=== PATIENT | male | born 1955 | race Caucasian/White ===

== ENCOUNTER 2017-01-22 06:19 | Inpatient (IN) | payer MEDICARE, MEDICAID ==
[2017-01-22] VITALS (15 sets, daily range): BP systolic 147–204; BP diastolic 80–98
[~2017-01-22] VITALS: Ht 172.7 cm; Wt 100.4 kg
[~2017-01-22 06:19] MED LIST: ADVAIR 500/501 E1 INH; ALDACTONE25 MG PO; ATORVASTATIN CA20 M1 PO; CHANTIX START M1 TAB PO; COREG12.5 M1 PO; COREG25 MG PO; CYMBALTA30 MG PO; Clopidogrel75 MG PO; K-TAB20 MEQ PO; LANTUS100 U/ML SC; LASIX20 MG PO; LIPITOR20 MG PO; LOW DOSE ASPIRI81 MG PO; PLAVIX75 M1 PO; PROAIR HFA8.5 GM INH; VITAMIN D1000 IU PO; ZESTRIL20 MG PO
[2017-01-22 06:59] LABS: BASO # 0.1 10*3/uL (0.0-0.1); BASO % 1.3 % (0.0-1.0); EOS # 0.4 10*3/uL (0.0-0.4); EOS % 4.9 % (1.0-4.0); HEMATOCRIT 42.3 % (42.0-52.0); HEMOGLOBIN 14.1 g/dl (14.0-18.0); LYMPH # 1.2 10*3/uL (1.3-4.4); LYMPH % 14.2 % (27.0-41.0); MEAN CORPUSCULAR HGB CONC 33.3 g/dl (33.0-37.0); MEAN PLATELET VOLUME 9.9 fl (9.6-12.3); MONO # 0.4 10*3/uL (0.1-1.0); NEUT # 6.5 10*3/uL (2.3-7.9); NEUT % 74.1 % (47.0-73.0); PLATELET COUNT AUTOMATED 187 10*3/uL (130-400); RED BLOOD COUNT 4.86 10*6/uL (4.50-5.90); RED CELL DISTRI WIDTH 13.5 % (0-14.5); WHITE BLOOD COUNT 8.8 10*3/uL (4.8-10.8)
[2017-01-22 07:15] LABS: ALBUMIN 2.3 gm/dl (3.1-4.5); ALKALINE PHOSPHATASE 67 U/L (45-117); BUN 18 mg/dl (7-24); CHLORIDE 102 mmol/L (98-107); POTASSIUM 5.1 mmol/L (3.5-5.1); SGOT/AST 8 IU/L (3-35); SGPT/ALT 12 U/L (12-78); SODIUM 137 mmol/L (136-145); TOTAL PROTEIN 6.1 gm/dL (6.4-8.2)
[2017-01-22 07:16] LABS: TROPONIN I 0.029 ng/ml (<0.045)
--- NOTE | 2017-01-22 07:17 | NUR ---
PATIENT IS ALERT AND ORIENTED X3, STATES THAT HE IS FEELING A LITTLE BETTER AT THIS TIME, RESPIRATIONS ARE EASY AND NONLABORED AT THIS TIME, SKIN IS PINK, WARM, AND DRY, PATIENT STATES THAT HE IS ABLE TO BREATH A LITTLE BETTER, PATIENT DOES HAVE A MOIST COUGH, STATES THAT HE ALSO TOOK HIS BLOOD PRESSURE MEDICATIONS THIS MORNING AT 0600, NOTED TO BE ELEVATED UPON ARRIVAL DECREASED TO 184/82 AT 0715, CALL LIGHT IN REACH OF THE PATIENT, FAMILY PRESENT IN THE ROOM WITH THE PATIENT, CONTINUING TO MONITOR THE PATIENT. LISA REEVES
--- NOTE | 2017-01-22 07:45 | NUR ---
V.O. GIVEN BY DR. CASTILLO TO DISCONTINUE NORMAL SALINE FLUID, EXPLAINED TO DR. CASTILLO THAT THE FLUIDS WERE ORDERED WIDE OPEN AND THAT HE HAS A HX OF CHF, V.O. REPEATED BACK TO DR. CASTILLO AT THIS TIME. LISA REEVES
[2017-01-22 07:51] LABS: BILIRUBIN NEGATIVE (NEGATIVE); BLOOD 1+ (NEGATIVE); CLARITY CLEAR (CLEAR); COLOR YELLOW (YELLOW); GLUCOSE 1+ (NEGATIVE); KETONE NEGATIVE (NEGATIVE); LEUKO ESTERASE NEGATIVE (NEGATIVE); NITRITE NEGATIVE (NEGATIVE); UROBILINOGEN 0.2 E.U./dl (0.2-1.0)
[2017-01-22 08:01] LABS: BACTERIA TRACE; EPITHELIAL CELLS 0-2; WBC 0-2 wbc/hpf (0-5)
--- NOTE | 2017-01-22 09:00 | NUR ---
SEVERAL ATTEMPTS WERE MADE TO GET BLOOD GASES BY MYSELF, AMPARO FRIEND, AND WILLA QURESHI RN WE WERE ALL UNSUCESSFUL, DR. CASTILLO AWARE OF THIS SITUATION, STATES THAT THEY ARE NOT NEEDED AT THIS TIME TO CANCEL THE ORDER. V.O. TO CANCEL THE ORDER REPEATED BACK TO DR. CASTILLO AT THIS TIME. LISA REEVES
--- NOTE | 2017-01-22 09:30 | NUR ---
A 61YO MALE, admitted to , under the services of DARBY Harrell DO with a diagnosis of HYPERTENSIVE EMERGENCY/PNEUMONITIS. Chief complaint is SHORTNESS OF BREATH AND ORTHOPNEA DURING THE NIGHT THAT WAS NOT RELEIVED BY APPLYING O2 2L NC. Patient arrived via stretcher from ER. Monitor applied. Initial assessment completed. Vital signs taken and recorded. DARBY HARRELL DO notified of admission to the unit. Orders received. See assessment for past medical history, medications and allergies. Patient and/or family oriented to unit. [facility] visitation policy reviewed. Clothing/patient valuable form completed. MANUELA RAO
--- NOTE | 2017-01-22 09:48 | NUR ---
PATIENT TAKEN TO ROOM 515-2 PLACED ON THE MONITOR AND IN THE BED, CARE TRANSFERRED TO TO MANUELA RAO RN. LISA REEVES
[2017-01-22] MEDS ORDERED: ADVAIR 500/50 INH (10:33)
--- NOTE | 2017-01-22 10:35 | NUR ---
MED REC UPDATED/CORRECTED USING INFORMATION PROVIDED BY TORO CORDERO.
--- NOTE | 2017-01-22 13:15 | NUR ---
BP 204/[address] FERRERA HE STATED HE WILL PUT IN NEW ORDERS.
--- NOTE | 2017-01-22 15:49 | NUR ---
DR FERRERA NOTIFIED OF BP GOING BACK UP. HE STATED HE WILL PUT IN AN ORDER FOR LABETALOL.
--- NOTE | 2017-01-22 17:01 | NUR ---
DR FERRERA NOTIFIED OF BP.
--- NOTE | 2017-01-22 22:46 | NUR ---
NORCO GIVEN PER ORDER FOR CHRONIC LEG PAIN RATED "5" PER PT. SEE MAR.
--- NOTE | 2017-01-22 23:45 | NUR ---
NORCO EFFECTIVE FOR PER PT. RATED PAIN ".2"
[2017-01-23] VITALS: BP 152/77
--- NOTE | 2017-01-23 05:53 | NUR ---
PT. SLEEPING NOT ACUTE DISTRESS NOTED. HR IS 60'S PER CM.
[2017-01-23 06:41] LABS: HEMATOCRIT 39.3 % (42.0-52.0); HEMOGLOBIN 13.6 g/dl (14.0-18.0); MEAN CELL VOLUME 84.5 fl (80.0-94.0); MEAN CORPUSCULAR HGB 29.2 pg (27.0-31.0); MEAN CORPUSCULAR HGB CONC 34.6 g/dl (33.0-37.0); MEAN PLATELET VOLUME 9.9 fl (9.6-12.3); PLATELET COUNT AUTOMATED 180 10*3/uL (130-400); RED BLOOD COUNT 4.65 10*6/uL (4.50-5.90); RED CELL DISTRI WIDTH 13.2 % (0-14.5); WHITE BLOOD COUNT 9.6 10*3/uL (4.8-10.8)
[2017-01-23 07:17] LABS: ACT PARTIAL THROMBO TIME 23.9 SECONDS (20.8-31.5)
[2017-01-23 07:22] LABS: THYROID STIM HORMONE (HS) 0.693 uIU/ml (0.358-4.75); TOTAL CELLS COUNTED 100 #CELLS
[2017-01-23 07:23] LABS: PLATELET SUFFICIENCY NORMAL (NORMAL)
[2017-01-23 07:24] LABS: CREATININE 1.49 mg/dL (0.70-1.30); FREE T4 0.79 ng/dl (0.76-1.46); PHOSPHOROUS 2.9 mg/dL (2.5-4.9); POTASSIUM 4.9 mmol/L (3.5-5.1); TOTAL PROTEIN 5.5 gm/dL (6.4-8.2)
[2017-01-23 08:00] VITALS: BP 162/83
--- NOTE | 2017-01-23 09:00 | NUR ---
[employer] Reseller in to talk to patient. Patient states lives at home with girlfriend. There are few steps in the home. Physician: emani cavazos [facility]acy: [facility] Home health services: none Patient's level of ADLs: INDEPENDENT Patient has working utilities: all working DME: cane Follow-up physician's appointment after d/c: will be made by hospitalist nurse director upon discharge Does patient want to access PORTAL?: no Discharge plan discussed with patient, patient states he lives at home with his girlfriend, he is independent in adls and ambulation, uses a cane occasionally, drives, patient states he will be going back home and denies any home needs. TANG ORTIZ
--- NOTE | 2017-01-23 09:54 | NUR ---
NORCO GIVEN FOR C/O PAIN TO B/L LE OF 11/13. WILL CONT TO MONITOR. CALL LIGHT IN REACH.
--- NOTE | 2017-01-23 10:54 | NUR ---
[place] EFF AT THIS TIME. WILL CONT TO MONITOR. CALL LIGHT IN REACH.
--- NOTE | 2017-01-23 11:48 | NUR ---
NOTIFIED DR OLSON THAT BEDSIDE GLUCOSE IS ELEVATED AND PT IS NOT ON A SLIDING SCALE ONLY LEVEMIER AT HS. SHE STATED SHE WILL PUT IN AN ORDER FOR SLIDING SCALE.
[2017-01-23 12:00] VITALS: BP 135/78
--- NOTE | 2017-01-23 12:51 | NUR ---
PT INSTRUCTED ON FLUTTER. PT TOLERATED WELL. PT CAN DO ON HIS OWN.
--- NOTE | 2017-01-23 14:06 | NUR ---
SW SPOKE WITH PT TO INFORM THAT FACILITY DOES NOT HAVE A TIP FOR HIS CANE. SW INFORMED HIM THAT THEY CAN BE PURCHASED AT [employer], A PHARMACY OR MEDICAL SUPPLY COMPANY. PT STATED THAT HE HAS 6 AT HOME BUT DOES NOT REMEMBER WHERE HE PUT THEM. HE JUST SEEN THEM AT HOME. PT STATED THAT HE HAS ONLY WORN OUT 2 OF THEM.
[2017-01-23 16:00] VITALS: BP 165/87
[2017-01-23 20:00] VITALS: BP 154/81
--- NOTE | 2017-01-23 20:00 | NUR ---
NORCO GIVEN PER ORDER FOR LOWER LEG PAIN RATED "8" PER PT.
--- NOTE | 2017-01-23 21:00 | NUR ---
PER PT. JOSE ALFREDO EFFECTIVE FOR LOWER LEG PAIN RATED "4".
--- NOTE | 2017-01-23 23:12 | NUR ---
RESTORIL GIVEN PER ORDER FOR INSOMNIA PER PT. REQUEST
[2017-01-24] VITALS: BP 159/76
[2017-01-24 07:29] LABS: HEMATOCRIT 40.4 % (42.0-52.0); HEMOGLOBIN 13.4 g/dl (14.0-18.0); MEAN CELL VOLUME 85.6 fl (80.0-94.0); MEAN CORPUSCULAR HGB 28.4 pg (27.0-31.0); MEAN CORPUSCULAR HGB CONC 33.2 g/dl (33.0-37.0); MEAN PLATELET VOLUME 10.2 fl (9.6-12.3); PLATELET COUNT AUTOMATED 190 10*3/uL (130-400); RED BLOOD COUNT 4.72 10*6/uL (4.50-5.90); RED CELL DISTRI WIDTH 13.2 % (0-14.5); WHITE BLOOD COUNT 13.5 10*3/uL (4.8-10.8)
[2017-01-24 07:34] LABS: CREATININE 1.51 mg/dL (0.70-1.30); POTASSIUM 4.7 mmol/L (3.5-5.1)
[2017-01-24 07:55] VITALS: BP 160/82
[2017-01-24 07:55] LABS: TOTAL CELLS COUNTED 100 #CELLS
[2017-01-24 07:56] LABS: PLATELET SUFFICIENCY NORMAL (NORMAL)
[2017-01-24 08:00] VITALS: BP 162/82
--- NOTE | 2017-01-24 09:00 | NUR ---
case management visits with patient, patient denies any home needs
[2017-01-24] MEDS ORDERED: PREDNISONE10 MG PO (11:03)
[2017-01-24] MEDS ORDERED: LEVAQUIN750 M1 PO (11:03)
--- NOTE | 2017-01-24 11:53 | NUR ---
Discharge instructions reviewed with patient/family. Patient receptive and verbalizes understanding. Follow-up care arranged. Written instructions given to patient/family. DEDRICK ESQUIVEL
== END 2017-01-24 11:50 | disposition home or self-care (01) | DRG 682 ==
LOC: ED 06:19 → EDHOLD 07:51 → 5E 07:51
PROVIDERS: Emergency Medicine Emergency Medical Services; Hospitalist; Internal Medicine; ADMIT Internal Medicine
DX: N17.0 Acute kidney failure with tubular necrosis (principal); J18.9 Pneumonia, unspecified organism; E43 Unspecified severe protein-calorie malnutrition; E11.52 Type 2 diabetes mellitus with diabetic peripheral angiopathy with gangrene; Z99.81 Dependence on supplemental oxygen; J44.0 Chronic obstructive pulmonary disease with (acute) lower respiratory infection; I16.1 Hypertensive emergency; E87.1 Hypo-osmolality and hyponatremia; R31.9 Hematuria, unspecified; E66.09 Other obesity due to excess calories; F17.200 Nicotine dependence, unspecified, uncomplicated; I10 Essential (primary) hypertension; E83.42 Hypomagnesemia; Z71.6 Tobacco abuse counseling; I25.2 Old myocardial infarction; Z79.4 Long term (current) use of insulin; Z82.49 Family history of ischemic heart disease and other diseases of the circulatory system; Z68.33 Body mass index [BMI] 33.0-33.9, adult; Z79.899 Other long term (current) drug therapy

== ENCOUNTER 2017-02-12 11:59 | Inpatient (IN) | payer MEDICARE, OTHER ==
[~2017-02-12] VITALS: Ht 182.8 cm; Wt 112.5 kg
--- NOTE | ~2017-02-12 | CON ---
[place], [place] REPORT OF CONSULTATION NAME: IKE TRUJILLO UNIT #: [id number] ROOM: 408 DOCTOR: BRANDON ZHU [facility] BIRTHDATE: [birth year] DOS: HISTORY OF PRESENT ILLNESS: The patient came in with history of severe right lower extremity pain and also some pain extending on the left also with wounds and cellulitis and severe peripheral artery disease on the arterial Doppler, more so on the right than the left, but also has bilateral severe peripheral artery disease and had a history of surgery on both lower extremities and also history of stent placement in the right side in the past. The patient has a history of renal failure and the creatinine is greater than 2, CKD III-IV is consider, inability to ambulate, history of smoking, and the patient also has respiratory insufficiency and history of anemia and proteinuria, history of hypertension, diabetes and tobacco abuse. History of Atrial fibrillation with rapid ventricular response and marked obesity. The patient on anticoagulation, on Plavix. The patient is also on beta terrance agents and statins. PHYSICAL EXAMINATION: VITAL SIGNS: Blood pressure is stable. EXTREMITIES: Diminished pulses in both lower extremities. Edema and cellulitis and ischemic changes are noted. LUNGS: Diminished breath sounds at bases. HEART: S1, S2 irregular and rapid. ABDOMEN: Soft, obese. EXTREMITIES: Peripheral artery disease significant with cellulitic changes and the pulses are not felt. ASSESSMENT AND PLAN: Optimize the medical therapy. Since peripheral artery disease is markedly abnormal, Dr. Jimenez discussed with the patient for peripheral arteriogram and possible revascularization. Options, procedures, complications, morbidity, and mortality risks were explained. The patient is being transferred to [place] for further management. Increased risk also explained. Limb loss also explained. OSVALDO TAYLOR MD CM:CONSTR:REPORT OF CONSULTATION 09 02/17/17 0120 interface ANALILIA JIMENEZ DPM
--- NOTE | ~2017-02-12 | CON ---
[place], [place] REPORT OF CONSULTATION NAME: IKE TRUJILLO UNIT #: [id number] ROOM: 408 DOCTOR: TONY OWENANALILIA Julius BIRTHDATE: [birth year] DOS: 02/14/2017 SUBJECTIVE: The patient presents as a 61-year-old male with chief complaint of pain and redness of both feet and the patient has had drainage from his left lower leg over the past couple of weeks. PAST MEDICAL HISTORY: COPD, diabetes, essential primary hypertension, non-ST elevation [place], obesity, peripheral arterial disease, severe protein calorie malnutrition, stenosis of right femoral artery, tobacco abuse. PAST SURGICAL HISTORY: Amputation of toes 2, 3, 5 of right foot, history of peripheral arterial bypass. SOCIAL HISTORY: Alcohol drinker. Denies illicit drug use, history of smoking. FAMILY HISTORY: Mother from [place] at age 51. Father from [place] at age 56. ALLERGIES: No known allergies. PHYSICAL EXAMINATION: LOWER EXTREMITY EXAMINATION: Pedal pulses diminished bilateral. Decreased hair growth. Decreased epicritic sensations. Amputated digits 2, 3, 5, right foot. There is erythema with papules to the inner spaces of the left foot. There is a full thickness ulceration, plantar distal left hallux. No signs of purulent drainage or foul odor. No signs of sinus tract or abscess. There is venous insufficiency with serous drainage emanating from the left lower extremity. Ulceration to the anterior leg is full thickness with no signs of abscess or sinus tract. Dry, xerotic skin, bilateral foot, left worse than right. ASSESSMENT: Diabetes with peripheral vascular disease; venous insufficiency; venous stasis ulceration, left leg; ulceration, left hallux. PLAN: Evaluation and management. Discussed with the patient treatment options. It appears the venous Doppler was performed on the foot, but not on the lower extremities. We will order venous Doppler along with arterial Doppler of bilateral lower extremities. Orders for Xeroform to apply the open areas of left anterior leg and left hallux with gauze dressings and Coban due to the serous drainage of the left leg. No compressive dressing at this point. We will follow the patient to review testing and additional followup. Thank you for kind consultation. [place], [place] REPORT OF CONSULTATION NAME: IKE TRUJILLO UNIT #: [id number] ROOM: 408 DOCTOR: ANALILIA JIMENEZ DPM BIRTHDATE: [birth year] ANALILIA JIMENEZ DPM CM:CONSTR:REPORT OF CONSULTATION 1209 02/14/17 1321 interface
[~2017-02-12 11:59] MED LIST changes: +ADVAIR 500/50 INH; +LEVAQUIN750 M1 PO; +PREDNISONE10 MG PO
[2017-02-12 12:04] VITALS: BP 119/70
[2017-02-12 13:00] LABS: BASO # 0.1 10*3/uL (0.0-0.1); BASO % 0.6 % (0.0-1.0); EOS # 0.2 10*3/uL (0.0-0.4); EOS % 2.3 % (1.0-4.0); HEMATOCRIT 40.3 % (42.0-52.0); HEMOGLOBIN 13.3 g/dl (14.0-18.0); LYMPH # 1.2 10*3/uL (1.3-4.4); LYMPH % 13.5 % (27.0-41.0); MEAN CELL VOLUME 87.4 fl (80.0-94.0); MEAN CORPUSCULAR HGB 28.9 pg (27.0-31.0); MEAN PLATELET VOLUME 12.2 fl (9.6-12.3); MONO # 0.4 10*3/uL (0.1-1.0); MONO % 4.7 % (3.0-9.0); NEUT # 6.7 10*3/uL (2.3-7.9); NEUT % 78.5 % (47.0-73.0); PLATELET COUNT AUTOMATED 125 10*3/uL (130-400); RED BLOOD COUNT 4.61 10*6/uL (4.50-5.90); RED CELL DISTRI WIDTH 13.4 % (0-14.5); WHITE BLOOD COUNT 8.6 10*3/uL (4.8-10.8)
[2017-02-12 13:16] LABS: ALBUMIN 2.3 gm/dl (3.1-4.5); CREATININE 2.13 mg/dL (0.70-1.30); POTASSIUM 5.2 mmol/L (3.5-5.1); TOTAL PROTEIN 5.4 gm/dL (6.4-8.2)
[2017-02-12 13:46] LABS: BILIRUBIN NEGATIVE (NEGATIVE); BLOOD TRACE-LYSED (NEGATIVE); CLARITY SL CLOUDY (CLEAR); COLOR YELLOW (YELLOW); GLUCOSE 3+ (NEGATIVE); KETONE NEGATIVE (NEGATIVE); LEUKO ESTERASE NEGATIVE (NEGATIVE); NITRITE NEGATIVE (NEGATIVE); PH 5.5 (5.0-9.0); SPECIFIC GRAVITY 1.025 (1.005-1.030)
[2017-02-12 14:03] LABS: BACTERIA 2+; FINE GRANULAR CAST 15-20
[2017-02-12 15:48] VITALS: BP 128/81
--- NOTE | 2017-02-12 16:15 | NUR ---
Time: 1535 A 61 year old MALE admitted to under services of DARBY HARRELL DO. Pt. arrived via bed from ER. Chief complaint: INABILITY TO AMBULATE. KERRY LOMAS
--- NOTE | 2017-02-12 16:27 | NUR ---
NOTIFIED OF IRREGULAR HEART BEAT, STAT ELG ORDERED, PT HOOKED UP TO CRADIAC MONITOR
[2017-02-12 17:36] LABS: ACT PARTIAL THROMBO TIME 22.8 SECONDS (20.8-31.5)
[2017-02-12 17:50] LABS: TROPONIN I 0.108 ng/ml (<0.045)
[2017-02-12 17:52] LABS: THYROID STIM HORMONE (HS) 2.66 uIU/ml (0.358-4.75)
--- NOTE | 2017-02-12 17:54 | NUR ---
DR HERNANDEZ AND DR DEAN NOTIFED OF ELEVATED TROPONIN, NEW ORDERS RECIEVED AND VERIFIED.
--- NOTE | 2017-02-12 18:29 | NUR ---
NOTIFIED OF D-DIMER, UNABLE TO GET AHOLD OF AT THIS TIME
--- NOTE | 2017-02-12 19:03 | NUR ---
NORCO GIVEN AT THIS TIME FOR COMPLAINTS OF PAIN IN HIS LEGS. WILL MONITOR FOR EFFECTIVENESS.
--- NOTE | 2017-02-12 19:16 | NUR ---
NOTIFIED OF PT'S C/O OF MIDSTERNAL CHEST PAIN, ACHING 12/13. NO NEW ORDERS AT TIME. CONTINUE TO MONITOR
[2017-02-12 20:00] VITALS: BP 90/69
--- NOTE | 2017-02-12 20:58 | NUR ---
TROPONIN ELEVATED; PT. VOICES NO C/O CHEST PAIN AT THIS TIME. DR. ROJAS STATED NOT TO CALL UNLESS PATIENT WAS SYMPTOMATIC.
--- NOTE | 2017-02-12 20:58 | NUR ---
TROPONIN LEVEL 0.120; PT. ASYMPTOMATIC. DR. SOTO STATED NOT TO CALL UNLESS PATIENT IS SYMPTOMATIC.
--- NOTE | 2017-02-12 22:00 | NUR ---
BLOOD SUGAR 190; 2 UNITS OF COVERAGE GIVEN.
--- NOTE | 2017-02-12 23:00 | NUR ---
SPOKE TO DR. MCKINNEY REGARDING PATIENT'S D-DIMER BEING ELEVATED. RN REPORTED EARLIER THAT PATIENT MIGHT HAVE TO HAVE A CTA & THAT THE IV FLUIDS NEED TO BE DISCONTINUED AFTER THE BAG OF FLUIDS THAT ARE UP NOW.
--- NOTE | 2017-02-12 23:07 | NUR ---
TROPONIN ELEVATED; PT. ASYMPTOMATIC.
[2017-02-13] VITALS (7 sets, daily range): BP systolic 104–137; BP diastolic 60–99
--- NOTE | 2017-02-13 00:30 | NUR ---
PTT 37.4; GTT ADJUSTED PER POLICY; NEXT PTT AT 6:30 A.M.
--- NOTE | 2017-02-13 01:41 | NUR ---
MEDICATED WITH PRN MORPHINE FOR C/O LEG PAIN. RATES 12/13.
--- NOTE | 2017-02-13 03:30 | NUR ---
PT. SLEEPING; MS GIVEN EARLIER APPRARENTLY EFFECTIVE.
--- NOTE | 2017-02-13 06:00 | NUR ---
BLOOD SUGAR 98; NO COVERAGE REQUIRED.
--- NOTE | 2017-02-13 06:29 | NUR ---
MEDICATED WITH MS SLOW IV PUSH FOR C/O LEGS & FEET RATED A 10/10.
[2017-02-13 07:00] LABS: CREATININE 1.74 mg/dL (0.70-1.30); PHOSPHOROUS 3.8 mg/dL (2.5-4.9); POTASSIUM 4.6 mmol/L (3.5-5.1)
--- NOTE | 2017-02-13 07:05 | NUR ---
PTT 41.7; GTT INCREASED PER POLICY. NEXT PTT AT 1PM.
[2017-02-13 07:39] LABS: BASO # 0.1 10*3/uL (0.0-0.1); BASO % 0.6 % (0.0-1.0); EOS # 0.5 10*3/uL (0.0-0.4); EOS % 4.8 % (1.0-4.0); HEMATOCRIT 38.2 % (42.0-52.0); HEMOGLOBIN 12.6 g/dl (14.0-18.0); LYMPH % 20.1 % (27.0-41.0); MEAN CELL VOLUME 87.2 fl (80.0-94.0); MEAN CORPUSCULAR HGB 28.8 pg (27.0-31.0); MONO # 0.4 10*3/uL (0.1-1.0); MONO % 4.2 % (3.0-9.0); PLATELET COUNT AUTOMATED 122 10*3/uL (130-400); RED BLOOD COUNT 4.38 10*6/uL (4.50-5.90); RED CELL DISTRI WIDTH 13.6 % (0-14.5)
--- NOTE | 2017-02-13 08:15 | NUR ---
Lean Manager in to talk to patient. Patient states lives at home with his girlfriend. There is 1 step into the home. Physician: Dr. Arnoldo Anne [facility]acy: [facility] Home health services: none at present, [facility] if needed Patient's level of ADLs: MINIMAL ASSIST Patient has working utilities: yes DME: cane, walker Follow-up physician's appointment after d/c: will be made by hospitalist nurse director upon discharge Does patient want to access PORTAL?: no Discharge plan discussed with patient. He lives at home with his girlfriend. He would like [facility] if therapy is needed at home. He is independent in his ADLs and uses a cane/walker for ambulation. He will return home when medically stable. DANIEL STEARNS
--- NOTE | 2017-02-13 08:22 | NUR ---
DR MAX NOTIFIED THAT [facility] CALLED AND NEEDS ONE OF THE LUNG SCAN ORDERS CANCELLED, AND PT REQUIRES A CXR WITHIN 24 HOURS. STATES OK TO ORDER THOSE. ASKED ABOUT PT'S CONDITION, UPDATED ON PT'S ELEVATED D-DIMER, TACHY HR AFIB 120-130'S, PT'S LOWER EXTREMITY SWELLING, POOR CIRCULATION.
--- NOTE | 2017-02-13 08:30 | NUR ---
PHYSICAL THERAPY Nursing screen received. PAtient already has PT ordrs. Thank you. Kendal chin,PT
--- NOTE | 2017-02-13 09:22 | NUR ---
MEDICATED WITH NORCO PER PRN ORDER FOR 10/10 PAIN IN BOTH FEET, STATES PAIN IS THROBBING. WILL MONITOR FOR EFFECTIVENESS.
--- NOTE | 2017-02-13 10:30 | NUR ---
PT STATED NORCO WAS MILDLY EFFECTIVE FOR BL FOOT PAIN. WILL CONTINUE TO MONITOR.
--- NOTE | 2017-02-13 10:42 | NUR ---
PHYSICAL THERAPY PAtient respectfully decline PT evaluation this date. " Please, may I rest one more day." PAtient issued CARSON nieto walker for use in room with any standing mobility to assist with (B)LE pain. Will attempt evaluation tomorrow. Thank you for this referral. Kendal Garner,PT
--- NOTE | 2017-02-13 10:45 | NUR ---
Patient requests no therapy this date but will agree to OT evaluation 02/14/17. OTR will attempt at another date. Thank you for this referral. Jessica De Leon OTR/l
--- NOTE | 2017-02-13 11:58 | NUR ---
DR KING IN TOP SEE PT AND UPDATED ON HR IN 130-140'S AFIB.
--- NOTE | 2017-02-13 12:02 | NUR ---
IKE TRUJILLO [id number] Please refer to the physician's history and physical for past medical history, comorbid conditions, and allergies. Diagnosis: INABILITY TO AMBULATE DUE TO ANKLE OR FOOT Wenceslao Score: 18,LOW OR NO RISK WOUND DESCRIPTIONS: Location of the wound: left gonzalez Thickness: Partial Size: 0.5cm x 0.6cm x 0.1cm Tunneling: none Undermining: none Sinus Tract: none Presence of Exudate: Serous Amount: None Color: Red Odor: None Periwound Skin Appearance: Staining Wound edges: approximated Pain (associated with wound): none at time of assessment How does patient state this happened? pt stated it started the day he was admitted to the hospital. Bilateral feel very cool to the touch. Staining noted to BLE. Pedal very faint to bilateral feet. Stated has had amputation to three toe due to circulation problems. Location of the wound: left great toe Type of wound: traumatic Thickness: Partial Size: 0.5cm x 0.2cm x 0.1cm Tunneling: none Undermining: none Sinus Tract: none Presence of Exudate: Serosanguineous Amount: Light Color: Red Odor: None Periwound Skin Appearance: staining Wound edges: approxiamted Pain (associated with wound): none at time of assessment How does patient state this happened? pt stated he believes this is due to the cold weather and his feet cracking. Surface the patient is resting on: Position Pro SKIN PREVENTION RECOMMENDATION: 1. Pressure redistribution support surface as appropriate 2. Elevate heels 3. Remove boots/TEDS every shift and reapply 4. Head of bed 30 degrees as tolerated 5. Assess nutrition and hydration 6. Manage moisture 7. Avoid the use of containment devices while in bed 8. Use absorptive products on surfaces limit layers of linens on bed 9. Turn and reposition every 1-2 hours in bed and every 1 hour in chair as tolerated 10. Weight shifts every 15 minutes while up in chair 11. Offloading with pillows or device to keep heels elevated off bed 12. Monitor skin at least every shift 13. Inspect under medical devices twice a day WOUND TREATMENT RECOMMENDATIONS: Consult podiatry for wound care recommendation due to pedal pulse and history of 3 ampuations to toe of left foot.
--- NOTE | 2017-02-13 12:20 | NUR ---
PT OFF FLOOR FOR VQ SCA. AND ULTRASOUND OF LOWER EXTREMITIES.
--- NOTE | 2017-02-13 13:05 | NUR ---
PATIENT NOT AVAILABLE FOR ECHO OFF THE FLOOR FOR OTHER TESTING.
--- NOTE | 2017-02-13 14:00 | NUR ---
PT BACK FROM RADIOLOGY AT THIS TIME.
--- NOTE | 2017-02-13 14:12 | NUR ---
DR RASHID OFFICE NOTIFIED OF NEW CONSULT. STATES DR JIMENEZ WILL BE IN TO SEE PT TOMORROW.
--- NOTE | 2017-02-13 14:39 | NUR ---
MEDICATED WITH NORCO PER PRN ORDER FOR COMPLAINTS OF BL FOOT PAIN, WILL MONITOR FOR EFFECTIVENESS. CALL LIGHT WITHIN REACH. ECHO BEING DONE AT THIS TIME.
--- NOTE | 2017-02-13 15:54 | NUR ---
DR MAX NOTIFIED OF PT'S VQ SCAN RESULT AND LOWER EXTREMITY ULTRASOUND RESULTS.
--- NOTE | 2017-02-13 16:14 | NUR ---
SPOKE WITH DR KING TO CLARIFY CARDIZEM GTT ORDER. HE WANTS PT TO HAVE CARDIZEM BOLUS OF 10MG NOW AND A 5MG/HR, TITRATE FOR HR>100. MED ORDER ADJUSTED AND NOTIFIED PHARMACY. 10 MG BOLUS GIVEN AT THIS TIME.
--- NOTE | 2017-02-13 16:21 | NUR ---
PT'S APTT CAME BACK 50.9, INCREASED HEPARIN DRIP BY 2U/KG/HR. DRIP NOW RUNNING AT 14.8U/KG/HR= 16.7ML/HR. APTT ORDERED FOR 2199.
--- NOTE | 2017-02-13 17:00 | NUR ---
WOUND CARE PERFORMED TO LEFT LEG/GREAT TOE AT THIS TIME PER ORDER. PT TOLERATED WELL.
[2017-02-14] VITALS (11 sets, daily range): BP systolic 109–147; BP diastolic 56–100
--- NOTE | 2017-02-14 00:48 | NUR ---
PRN PAIN MEDICATION ADM AT THIS TIME FOR PT. STATED PAIN OF 10/10 TO BLE. WILL MONITOR FOR EFFECTIVENESS.
--- NOTE | 2017-02-14 01:29 | NUR ---
EARLIER MORPHINE HELPED SOME PER PATIENT. WILL CONTINUE TO MONITOR. CALL LIGHT LEFT IN REACH.
[2017-02-14 06:19] LABS: BASO # 0.1 10*3/uL (0.0-0.1); BASO % 0.9 % (0.0-1.0); EOS # 0.4 10*3/uL (0.0-0.4); EOS % 4.2 % (1.0-4.0); HEMOGLOBIN 12.5 g/dl (14.0-18.0); LYMPH # 1.4 10*3/uL (1.3-4.4); LYMPH % 14.9 % (27.0-41.0); MEAN CELL VOLUME 88.4 fl (80.0-94.0); MEAN CORPUSCULAR HGB 28.3 pg (27.0-31.0); MEAN CORPUSCULAR HGB CONC 32.1 g/dl (33.0-37.0); MEAN PLATELET VOLUME 11.8 fl (9.6-12.3); MONO # 0.5 10*3/uL (0.1-1.0); MONO % 4.9 % (3.0-9.0); NEUT % 74.8 % (47.0-73.0); PLATELET COUNT AUTOMATED 107 10*3/uL (130-400); RED BLOOD COUNT 4.41 10*6/uL (4.50-5.90); RED CELL DISTRI WIDTH 13.8 % (0-14.5); WHITE BLOOD COUNT 9.4 10*3/uL (4.8-10.8)
[2017-02-14 06:32] LABS: CREATININE 1.76 mg/dL (0.70-1.30); POTASSIUM 5.3 mmol/L (3.5-5.1)
--- NOTE | 2017-02-14 08:30 | NUR ---
Before [employer] After [employer] Daycare Worker in to see patient. No new needs or request at this time. He will be discharged to home when medically stable and is willing to have [facility] if needed.
--- NOTE | 2017-02-14 09:16 | NUR ---
PHYSICAL THERAPY PAtient repsectfully declines PT this am. PAtient is ambulating to restroom. Will attempt at a lataer time or date. Thank you for this referral. Kendal aden,PT
--- NOTE | 2017-02-14 09:54 | NUR ---
MEDICATED WITH MORPHINE PER PRN ORDER FOR COMPLAINTS OF 8/10 FOOT PAIN. WILL MONITOR FOR EFFECTIVENESS. CALL LIGHT WITHIN REACH. PT REMAINS ON CARDIZEM/HEPARIN DRIP. HR AFIB IN THE 80-90'S. PT DENIES ANY FURTHER COMPLAINTS.
--- NOTE | 2017-02-14 10:26 | NUR ---
DR FERRERA IN TO SEE PT AT THIS TIME.
--- NOTE | 2017-02-14 10:30 | NUR ---
PT RESTING IN BED, STATES MORPHINE WAS EFFECTIVE FOR FOOT PAIN. CALL LIGHT WITHIN REACH.Y
--- NOTE | 2017-02-14 10:44 | NUR ---
CARDIZEM GTT DECREASED TO 2.5MG/HR PER DR FERRERA'S ORDER TO TITRATE PT DOWN OFF DRIP, PT'S HR CURRENTLY 90'S-100'S. BP CURRENTLY 116/90. WILL CONTINUE TO MONITOR CLOSELY.
--- NOTE | 2017-02-14 10:59 | NUR ---
DR KING UPDATED ON PT'S STATUS, ATTEMPTING TO WEAN PT OFF CARDIZEM, REDUCED DRIP TO 2.5MG/HR, PT'S HR BACK UP INTO 100-120'S. NEW ORDERS RECEIVED.
--- NOTE | 2017-02-14 11:30 | NUR ---
IV PUSH DIGOXIN GIVEN SLOWLY AT THIS TIME PER ORDER FOR HR 110'S. CONTINUOUS MONITORING AT THIS TIME. PT IN NO DISTRESS.
--- NOTE | 2017-02-14 13:47 | NUR ---
PT ORDERED AN MRI. TRANSPORTER HERE AT THIS TIME TO TAKE PT, PT CAN NOT GO TO MRI WITH A PLANT CONTROL OPERATOR OR ANY IV'S RUNNING, WHICH PT CURRENTLY HAS IV CARDIZEM AND IV HEPARIN RUNNING. CALL PLACED TO DR HERNANDEZ REGARDING THIS AND THAT PT IS STILL CURRENTLY AFIB IN 100'S AND ON IV CARDIZEM AND HEPARIN. STATES TO REMOVE MONITOR AND IV'S FOR MRI AND CAN RESUME WHEN HE COMES BACK.
--- NOTE | 2017-02-14 13:49 | NUR ---
PHYSICAL THERAPY PAtient eating lunch at this time. Kendal Garner,PT
--- NOTE | 2017-02-14 13:50 | NUR ---
PT OFF FLOOR FOR MRI.
--- NOTE | 2017-02-14 15:55 | NUR ---
SPOKE WITH DR KING REGARDING ORDER FOR PO DIGOXIN, HE ASKED PT'S HR, EXPLAINED THE SITUATION THAT THE PT HAD TO BE TAKEN OFF MONITOR AND DRIPS TO BE TAKEN TO MRI. STATES TO GIVE A DOSE OF IV DIGOXIN 0.25MG NOW AND START PO DOSE TOMORROW.
--- NOTE | 2017-02-14 16:47 | NUR ---
WOUND CARE PERFORMED TO BL LOWER LEGS AT THIS TIME PER ORDER. NORCO GIVEN FOR COMPLAINTS OF LEG PAIN. WILL MONITOR FOR EFFECTIVENESS.
--- NOTE | 2017-02-14 17:29 | NUR ---
DR HERNANDEZ AWARE OF PT'S MRI/ULTRASOUND RESULTS.
--- NOTE | 2017-02-14 17:32 | NUR ---
DR TAYLOR NOTIFIED OF NEW CONSULT.
--- NOTE | 2017-02-14 17:35 | NUR ---
DR LEONE'S ANSWERING SERVICE NOTIFIED OF NEW CONSULT.
--- NOTE | 2017-02-14 17:42 | NUR ---
DR SWENSON RETURNED PAGE, STATES SOMEONE WILL SEE PT TOMORROW.
--- NOTE | 2017-02-14 18:27 | NUR ---
PT RESTING IN BED. NORCO EFFECTIVE.
--- NOTE | 2017-02-14 18:49 | NUR ---
HEPARIN PROTOCOL CHANGED TO DVT/PE PROTOCOL, PTT DRAWN 48.6. INCREASED HEPARIN DRIP TO 16.8U/KG/HR-19ML/HR. NEXT PTT TO BE DRAWN AT 0045.
--- NOTE | 2017-02-14 19:46 | NUR ---
HERE TO SEE PATIENT AT THIS TIME. DISCUSSED TRANSFER TO [place] TOMORROW MORNING (02/15/17).
--- NOTE | 2017-02-14 19:51 | NUR ---
MADE ARRANGED FOR PATIENT TO BE SET UP FOR TRANSFER TO [place] 02/15/17. STATES THEY WILL CALL HERE AT [facility] WITH A BED. PATIENT IS TO LEAVE AT 0545 AM TO BE THERE BY 0630 AM.
--- NOTE | 2017-02-14 20:02 | NUR ---
SPOKE TO JOANNE FROM [facility] AT THIS TIME. STATES THAT THEY WILL PROBABLY NOT HAVE AN ACTUAL BED FOR THE PATIENT UNTIL EARLY IN THE MORNING, BUT TO ARRANGE FOR PATIENT TO GO TO [facility]--LEAVE AT 0545 TO BE THERE AT 0630. STATES PATIENT WILL BE TAKEN THROUGH ER TO ADMITTING AND THEN TO CARDIAC HOLDING. IF ANY QUESTIONS ARISE, INSTRUCTED TO CALL [employer] CLERK'S NUMBER THERE AT [phone]. WILL SET UP TRANSPORTATION VIA EMS FOR 12/13 AM.
[2017-02-15] VITALS: BP 146/98
[2017-02-15 00:30] VITALS: BP 176/98
--- NOTE | 2017-02-15 00:49 | NUR ---
NOTIFIED OF PATIENT'S MANUAL BP 176/98. AWARE THAT PATIENT ON CARDIZEM GTT AND WAS GIVEN 100 MG PO METOPROLOL EARLIER IN THE NIGHT. ALSO AWARE THAT PATIENT IS BEING TRANSFERRED TO [place] IN AM. NEW ORDERS TO FOLLOW PER .
--- NOTE | 2017-02-15 01:09 | NUR ---
IV MORPHINE ADMINISTERED SLOWLY PER PRN ORDER FOR C/O BLE PAIN 12/13. PO HYDRALAZINE PER ONE TIME ORDER ALSO ADMINISTERED FOR BP 176/98 MANUALLY. WILL MONITOR EFFECTIVENESS OF MEDICATIONS. CALL LIGHT LEFT IN REACH.
[2017-02-15 02:00] VITALS: BP 142/89
--- NOTE | 2017-02-15 03:09 | NUR ---
CALLED TO CLARIFY WHICH CARDIOLOGY CONSULT IS CURRENT. AFTER LOOKING AT NOTES FROM AM SHIFT, FROM [facility] HAD BEEN IN TO SEE PATIENT AND ORDERED MEDICATIONS THROUGHOUT THE DAY. WAS ALSO IN TO SEE PATIENT THIS EVENING. [facility]ON ALSO ORDERED MEDICATIONS AND FOR THE PATIENT TO BE TRANSFERRED TO [facility] IN THE AM. PER , IS AWARE THAT IS NOW ON THE CASE AND WANTS PATIENT TO GO TO [facility] PLANNED. I ASKED IF /[facility] WAS AWARE OF THIS TRANSFER AND STATES HE WILL PASS ON THIS INFORMATION TO DAY TEAM WHO ORDERED [facility] CONSULT. PATIENT STATES HE DOES NOT HAVE AN ESTABLISHED RN [facility], AND AGREES TO TRANSFER PLANNED.
--- NOTE | 2017-02-15 03:32 | NUR ---
CALLED AGAIN AT THIS TIME. STILL NEED DISCHARGE ORDER FOR PATIENT TO BE TRANSFERRED. STATES HE WILL PUT ONE IN.
[2017-02-15] MEDS ORDERED: METOPROLOL SUC100 M1 PO (03:42)
[2017-02-15 04:00] VITALS: BP 131/79
--- NOTE | 2017-02-15 05:15 | NUR ---
PATIENT TO BE TRANSFERRED TO [place] FOR ANGIOGRAM WITH . PATIENT LEFT FLOOR IN CARE OF [facility]. BELONGINGS GATHERED AND SENT WITH PATIENT. SIGN HANGER COLLECTED. NURSE TO NURSE REPORT TO BE CALLED SHORTLY.
--- NOTE | 2017-02-15 05:46 | NUR ---
NURSE TO NURSE REPORT GIVEN AT THIS TIME. CALL BACK TO [phone] IF NEEDED FOR ANYTHING ELSE.
== END 2017-02-15 05:15 | disposition short-term general hospital (02) | DRG 602 ==
LOC: ED 11:59 → 4E 15:07 → EDHOLD 15:07 → 4E 15:12
PROVIDERS: Internal Medicine; Physician Assistant; ADMIT Internal Medicine
DX: L03.116 Cellulitis of left lower limb (principal); I26.99 Other pulmonary embolism without acute cor pulmonale; N17.0 Acute kidney failure with tubular necrosis; E11.22 Type 2 diabetes mellitus with diabetic chronic kidney disease; E11.51 Type 2 diabetes mellitus with diabetic peripheral angiopathy without gangrene; D69.6 Thrombocytopenia, unspecified; N18.4 Chronic kidney disease, stage 4 (severe); E11.621 Type 2 diabetes mellitus with foot ulcer; I42.9 Cardiomyopathy, unspecified; M86.9 Osteomyelitis, unspecified; E11.65 Type 2 diabetes mellitus with hyperglycemia; E11.69 Type 2 diabetes mellitus with other specified complication; L03.115 Cellulitis of right lower limb; I48.91 Unspecified atrial fibrillation; D64.9 Anemia, unspecified; R26.2 Difficulty in walking, not elsewhere classified; I12.9 Hypertensive chronic kidney disease with stage 1 through stage 4 chronic kidney disease, or unspecified chronic kidney disease; J44.9 Chronic obstructive pulmonary disease, unspecified; D72.810 Lymphocytopenia; E55.9 Vitamin D deficiency, unspecified; R31.9 Hematuria, unspecified; E66.09 Other obesity due to excess calories; I87.2 Venous insufficiency (chronic) (peripheral); I35.0 Nonrheumatic aortic (valve) stenosis; I70.203 Unspecified atherosclerosis of native arteries of extremities, bilateral legs; Z79.4 Long term (current) use of insulin; Z79.899 Other long term (current) drug therapy; Z89.421 Acquired absence of other right toe(s); Z79.01 Long term (current) use of anticoagulants; I25.2 Old myocardial infarction; Z82.49 Family history of ischemic heart disease and other diseases of the circulatory system; Z87.891 Personal history of nicotine dependence; Z78.9 Other specified health status; Z68.33 Body mass index [BMI] 33.0-33.9, adult; L97.529 Non-pressure chronic ulcer of other part of left foot with unspecified severity

== ENCOUNTER 2017-05-04 10:32 | Inpatient (IN) | payer MEDICARE, OTHER ==
[~2017-05-04] VITALS: Ht 172.7 cm; Wt 112.5 kg
[2017-05-04 10:32] VITALS: BP 114/69
[~2017-05-04 10:32] MED LIST changes: +METOPROLOL SUC100 M1 PO
[2017-05-04 11:23] VITALS: BP 120/79
[2017-05-04 11:24] LABS: BASO # 0.1 10*3/uL (0.0-0.1); BASO % 0.8 % (0.0-1.0); EOS % 0.3 % (1.0-4.0); HEMATOCRIT 32.2 % (42.0-52.0); HEMOGLOBIN 9.7 g/dl (14.0-18.0); LYMPH # 0.9 10*3/uL (1.3-4.4); MEAN CELL VOLUME 99.4 fl (80.0-94.0); MEAN CORPUSCULAR HGB 29.9 pg (27.0-31.0); MEAN CORPUSCULAR HGB CONC 30.1 g/dl (33.0-37.0); MEAN PLATELET VOLUME 9.5 fl (9.6-12.3); MONO # 0.6 10*3/uL (0.1-1.0); MONO % 5.5 % (3.0-9.0); NEUT # 9.7 10*3/uL (2.3-7.9); NEUT % 84.7 % (47.0-73.0); NUCLEATED RED BLOOD CELL 0.3 % (0.0-0.0); PLATELET COUNT AUTOMATED 331 10*3/uL (130-400); RED BLOOD COUNT 3.24 10*6/uL (4.50-5.90); RED CELL DISTRI WIDTH 18.1 % (0-14.5); WHITE BLOOD COUNT 11.4 10*3/uL (4.8-10.8)
[2017-05-04 11:34] LABS: ACT PARTIAL THROMBO TIME 30.9 SECONDS (20.8-31.5); INTERNATIONAL NORM RATIO 1.6 (2.0-3.5)
[2017-05-04] MEDS ORDERED: Diltiazem180 MG PO (11:40)
[2017-05-04] MEDS ORDERED: ELIQUIS5 M1 PO (11:41)
[2017-05-04] MEDS ORDERED: DUONEB 3 MG/3 ML3 M1 INH (11:41)
[2017-05-04] MEDS ORDERED: FLONASE ALLERG9.9 ML NAS (11:41)
[2017-05-04] MEDS ORDERED: GUAIFENESIN600 MG PO (11:42)
[2017-05-04 11:43] LABS: ALBUMIN 2.3 gm/dl (3.1-4.5); CREATININE 2.16 mg/dL (0.70-1.30); POTASSIUM 5.1 mmol/L (3.5-5.1); TOTAL PROTEIN 5.9 gm/dL (6.4-8.2)
[2017-05-04] MEDS ORDERED: HUMALOG100 UNIT/2 SQ (11:43)
[2017-05-04] MEDS ORDERED: INCRUSE ELLI62.5 MCG INH (11:44)
[2017-05-04] MEDS ORDERED: LANTUS SOL100 UNIT/1 SC (11:45)
[2017-05-04] MEDS ORDERED: LASIX40 MG PO (11:45)
[2017-05-04 11:46] LABS: TROPONIN I 0.019 ng/ml (<0.045)
[2017-05-04] MEDS ORDERED: LOPRESSOR100 M1 PO (11:46)
[2017-05-04] MEDS ORDERED: LEVALBUTER0.63 MG/4 INH (11:46)
[2017-05-04] MEDS ORDERED: OXYCODONE HCL10 M1 PO (11:47)
[2017-05-04] MEDS ORDERED: MIRALAX17 GM PO (11:47)
[2017-05-04] MEDS ORDERED: RENVELA0.8 GM PO (11:48)
[2017-05-04 13:02] VITALS: BP 118/88
[2017-05-04 13:22] VITALS: BP 119/74
[2017-05-04 16:00] VITALS: BP 120/76
[2017-05-04 20:00] VITALS: BP 136/96
[2017-05-05] VITALS: BP 117/87
[2017-05-05 04:00] VITALS: BP 137/84
[2017-05-05 06:20] LABS: HEMATOCRIT 34.6 % (42.0-52.0); MEAN CELL VOLUME 100.9 fl (80.0-94.0); MEAN CORPUSCULAR HGB 29.2 pg (27.0-31.0); MEAN CORPUSCULAR HGB CONC 28.9 g/dl (33.0-37.0); MEAN PLATELET VOLUME 9.9 fl (9.6-12.3); NUCLEATED RED BLOOD CELL 0.2 % (0.0-0.0); PLATELET COUNT AUTOMATED 278 10*3/uL (130-400); RED BLOOD COUNT 3.43 10*6/uL (4.50-5.90); RED CELL DISTRI WIDTH 18.4 % (0-14.5); WHITE BLOOD COUNT 10.1 10*3/uL (4.8-10.8)
[2017-05-05 06:41] LABS: BURR CELLS FEW; PLATELET SUFFICIENCY NORMAL (NORMAL); POLYCHROMASIA SLIGHT; TOTAL CELLS COUNTED 100 #CELLS
[2017-05-05 06:54] LABS: INTERNATIONAL NORM RATIO 1.6 (2.0-3.5)
[2017-05-05 06:59] LABS: ALBUMIN 2.3 gm/dl (3.1-4.5); CREATININE 2.37 mg/dL (0.70-1.30); PHOSPHOROUS 5.1 mg/dL (2.5-4.9); TOTAL PROTEIN 6.1 gm/dL (6.4-8.2)
[2017-05-05 07:05] LABS: THYROID STIM HORMONE (HS) 4.5 uIU/ml (0.358-4.75)
[2017-05-05 07:05] LABS: HEPATITIS B SURFACE AG Negative (Negative); HEPATITIS C VIRUS ANTIBODY 0.6 s/co (0.0-0.9)
[2017-05-05 08:00] VITALS: BP 116/90
[2017-05-05 08:44] LABS: VITAMIN D, 25-HYDROXY 8.9 ng/mL (30-100)
[2017-05-05 12:00] VITALS: BP 105/83
[2017-05-05 16:20] VITALS: BP 113/79
== END 2017-05-05 19:20 | disposition left against medical advice (07) | DRG 177 ==
LOC: ED 10:32 → EDHOLD 12:45 → 5E 12:45
PROVIDERS: Internal Medicine Nephrology; Student in an Organized Health Care Education/Training Program
DX: J15.6 Pneumonia due to other Gram-negative bacteria (principal); E43 Unspecified severe protein-calorie malnutrition; J96.20 Acute and chronic respiratory failure, unspecified whether with hypoxia or hypercapnia; E11.22 Type 2 diabetes mellitus with diabetic chronic kidney disease; E11.51 Type 2 diabetes mellitus with diabetic peripheral angiopathy without gangrene; I48.91 Unspecified atrial fibrillation; I13.0 Hypertensive heart and chronic kidney disease with heart failure and stage 1 through stage 4 chronic kidney disease, or unspecified chronic kidney disease; I50.22 Chronic systolic (congestive) heart failure; E11.65 Type 2 diabetes mellitus with hyperglycemia; R07.9 Chest pain, unspecified; I25.2 Old myocardial infarction; Z66 Do not resuscitate; Z51.5 Encounter for palliative care; D72.829 Elevated white blood cell count, unspecified; D72.9 Disorder of white blood cells, unspecified; D72.810 Lymphocytopenia; K82.8 Other specified diseases of gallbladder; M79.2 Neuralgia and neuritis, unspecified; D72.818 Other decreased white blood cell count; D53.9 Nutritional anemia, unspecified; F32.9 Major depressive disorder, single episode, unspecified; G47.33 Obstructive sleep apnea (adult) (pediatric); E55.9 Vitamin D deficiency, unspecified; E78.00 Pure hypercholesterolemia, unspecified; N18.3 Chronic kidney disease, stage 3 (moderate); E66.01 Morbid (severe) obesity due to excess calories; J44.9 Chronic obstructive pulmonary disease, unspecified; Z68.37 Body mass index [BMI] 37.0-37.9, adult; Z86.711 Personal history of pulmonary embolism; Z87.891 Personal history of nicotine dependence; Z79.01 Long term (current) use of anticoagulants; Z99.81 Dependence on supplemental oxygen; Z79.02 Long term (current) use of antithrombotics/antiplatelets; Z79.51 Long term (current) use of inhaled steroids; Z79.4 Long term (current) use of insulin; Z79.899 Other long term (current) drug therapy; Z89.512 Acquired absence of left leg below knee; Z89.421 Acquired absence of other right toe(s); Z95.820 Peripheral vascular angioplasty status with implants and grafts; Z88.8 Allergy status to other drugs, medicaments and biological substances; Z82.49 Family history of ischemic heart disease and other diseases of the circulatory system

== ENCOUNTER 2017-05-09 22:08 | Emergency (ER) | payer MEDICARE, OTHER ==
[~2017-05-09] VITALS: Ht 172.7 cm; Wt 95.3 kg
[~2017-05-09 22:08] MED LIST changes: +DUONEB 3 MG/3 ML3 M1 INH; +Diltiazem180 MG PO; +ELIQUIS5 M1 PO; +FLONASE ALLERG9.9 ML NAS; +GUAIFENESIN600 MG PO; +HUMALOG100 UNIT/2 SQ; +INCRUSE ELLI62.5 MCG INH; +LANTUS SOL100 UNIT/1 SC; +LASIX40 MG PO; +LEVALBUTER0.63 MG/4 INH; +LOPRESSOR100 M1 PO; +MIRALAX17 GM PO; +OXYCODONE HCL10 M1 PO; +RENVELA0.8 GM PO
[2017-05-09 22:49] LABS: HEMATOCRIT 40.7 % (42.0-52.0); MEAN CELL VOLUME 99.5 fl (80.0-94.0); MEAN CORPUSCULAR HGB 29.3 pg (27.0-31.0); MEAN CORPUSCULAR HGB CONC 29.5 g/dl (33.0-37.0); NUCLEATED RED BLOOD CELL 0.3 10*3/uL (0.0-0.0); PLATELET COUNT AUTOMATED 263 10*3/uL (130-400); RED BLOOD COUNT 4.09 10*6/uL (4.50-5.90); WHITE BLOOD COUNT 12.7 10*3/uL (4.8-10.8)
[2017-05-09 22:59] LABS: ACT PARTIAL THROMBO TIME 26.5 SECONDS (20.8-31.5); INTERNATIONAL NORM RATIO 1.4 (2.0-3.5)
[2017-05-09 23:06] LABS: ALBUMIN 2.5 gm/dl (3.1-4.5); CREATININE 2.21 mg/dL (0.70-1.30); POTASSIUM 4.9 mmol/L (3.5-5.1); TROPONIN I 0.025 ng/ml (<0.045)
[2017-05-09 23:11] LABS: BURR CELLS FEW; OVALOCYTES FEW; PLATELET SUFFICIENCY NORMAL (NORMAL); POLYCHROMASIA SLIGHT; TARGET CELLS FEW; TOTAL CELLS COUNTED 100 #CELLS
[2017-05-10 00:09] LABS: BILIRUBIN NEGATIVE (NEGATIVE); BLOOD NEGATIVE (NEGATIVE); CLARITY CLEAR (CLEAR); COLOR YELLOW (YELLOW); GLUCOSE NEGATIVE (NEGATIVE); KETONE NEGATIVE (NEGATIVE); LEUKO ESTERASE NEGATIVE (NEGATIVE); NITRITE NEGATIVE (NEGATIVE); PH 5.5 (5.0-9.0); SPECIFIC GRAVITY >= 1.030 (1.005-1.030)
== END 2017-05-10 00:44 | disposition short-term general hospital (02) ==
LOC: ED 22:08
PROVIDERS: Emergency Medicine Emergency Medical Services
DX: T79.6XXA Traumatic ischemia of muscle, initial encounter (principal); I13.0 Hypertensive heart and chronic kidney disease with heart failure and stage 1 through stage 4 chronic kidney disease, or unspecified chronic kidney disease; E11.22 Type 2 diabetes mellitus with diabetic chronic kidney disease; N18.3 Chronic kidney disease, stage 3 (moderate); I50.9 Heart failure, unspecified; J90 Pleural effusion, not elsewhere classified; J18.9 Pneumonia, unspecified organism; I26.99 Other pulmonary embolism without acute cor pulmonale; I48.91 Unspecified atrial fibrillation; I25.2 Old myocardial infarction; E66.01 Morbid (severe) obesity due to excess calories; Z79.82 Long term (current) use of aspirin; Z89.512 Acquired absence of left leg below knee; Z87.891 Personal history of nicotine dependence; Z79.4 Long term (current) use of insulin; Z79.899 Other long term (current) drug therapy; Z88.6 Allergy status to analgesic agent; Z88.8 Allergy status to other drugs, medicaments and biological substances; Z79.01 Long term (current) use of anticoagulants; Y92.9 Unspecified place or not applicable

== ENCOUNTER 2017-05-28 16:06 | Emergency (ER) | payer MEDICARE, OTHER ==
[~2017-05-28] VITALS: Wt 104.3 kg
[2017-05-28 16:39] LABS: BASO % 0.4 % (0.0-1.0); EOS # 0.2 10*3/uL (0.0-0.4); HEMATOCRIT 34.9 % (42.0-52.0); HEMOGLOBIN 9.9 g/dl (14.0-18.0); LYMPH # 0.7 10*3/uL (1.3-4.4); LYMPH % 9.6 % (27.0-41.0); MEAN CELL VOLUME 102.3 fl (80.0-94.0); MEAN CORPUSCULAR HGB CONC 28.4 g/dl (33.0-37.0); MEAN PLATELET VOLUME 9.6 fl (9.6-12.3); MONO # 0.6 10*3/uL (0.1-1.0); MONO % 7.8 % (3.0-9.0); NEUT # 5.9 10*3/uL (2.3-7.9); NEUT % 79.7 % (47.0-73.0); PLATELET COUNT AUTOMATED 204 10*3/uL (130-400); RED BLOOD COUNT 3.41 10*6/uL (4.50-5.90); RED CELL DISTRI WIDTH 15.9 % (0-14.5); WHITE BLOOD COUNT 7.4 10*3/uL (4.8-10.8)
[2017-05-28 16:42] LABS: ABG BASE EXCESS 2.4 mmol/L (-2.0-2.0); ABG HCO3 29.7 mmol/l (22-26); ABG O2 SATURATION 100.1 % (95-97); ARTERIAL BLOOD GAS PCO2 65.7 mmHg (35-45); ARTERIAL BLOOD GAS PH 7.278 (7.35-7.45)
[2017-05-28 16:58] LABS: ALBUMIN 2.3 gm/dl (3.1-4.5); CREATININE 1.99 mg/dL (0.70-1.30); POTASSIUM 5.3 mmol/L (3.5-5.1); TOTAL PROTEIN 5.9 gm/dL (6.4-8.2)
== END 2017-05-28 16:58 | disposition short-term general hospital (02) ==
LOC: ED 16:06
PROVIDERS: Emergency Medicine
DX: T20.20XA Burn of second degree of head, face, and neck, unspecified site, initial encounter (principal); J68.8 Other respiratory conditions due to chemicals, gases, fumes and vapors; I13.0 Hypertensive heart and chronic kidney disease with heart failure and stage 1 through stage 4 chronic kidney disease, or unspecified chronic kidney disease; F17.210 Nicotine dependence, cigarettes, uncomplicated; E11.22 Type 2 diabetes mellitus with diabetic chronic kidney disease; N18.9 Chronic kidney disease, unspecified; I50.9 Heart failure, unspecified; I25.2 Old myocardial infarction; E66.01 Morbid (severe) obesity due to excess calories; G47.33 Obstructive sleep apnea (adult) (pediatric); I48.91 Unspecified atrial fibrillation; Z98.890 Other specified postprocedural states; Z86.711 Personal history of pulmonary embolism; Z79.899 Other long term (current) drug therapy; Z79.4 Long term (current) use of insulin; Z88.6 Allergy status to analgesic agent; Z88.8 Allergy status to other drugs, medicaments and biological substances; Z99.81 Dependence on supplemental oxygen; X08.8XXA Exposure to other specified smoke, fire and flames, initial encounter; Y93.89 Activity, other specified; Y92.89 Other specified places as the place of occurrence of the external cause; Y99.9 Unspecified external cause status

== ENCOUNTER 2017-08-26 03:05 | Emergency (ER) | payer MEDICARE, OTHER ==
[~2017-08-26] VITALS: Wt 86.2 kg
[2017-08-26] MEDS ORDERED: TYLENOL325 M3 PO (03:30)
[2017-08-26] MEDS ORDERED: BREO ELLIPTA 11 EACH INH (03:30)
[2017-08-26] MEDS ORDERED: DUONEB 3 MG/3 ML3 M1 INH (03:31)
[2017-08-26] MEDS ORDERED: CARDIZEM LA360 MG PO (03:31)
[2017-08-26] MEDS ORDERED: DOCUSATE SOD100 MG PO (03:31)
[2017-08-26] MEDS ORDERED: ELIQUIS2.5 M1 PO (03:31)
[2017-08-26] MEDS ORDERED: HUMALOG100 UNIT/2 SQ ×2 (03:32→03:34)
[2017-08-26] MEDS ORDERED: LEVEMIR100 UNIT/1 SC (03:34)
[2017-08-26] MEDS ORDERED: LASIX20 MG PO (03:34)
[2017-08-26] MEDS ORDERED: LIPITOR20 MG PO (03:35)
[2017-08-26] MEDS ORDERED: MELATONIN3 MG PO (03:35)
[2017-08-26] MEDS ORDERED: LYRICA50 M1 PO (03:35)
[2017-08-26] MEDS ORDERED: MIDODRINE HCL10 MG PO (03:36)
[2017-08-26] MEDS ORDERED: LOPRESSOR100 M1 PO (03:36)
[2017-08-26] MEDS ORDERED: MIRALAX17 GM PO (03:36)
[2017-08-26] MEDS ORDERED: NITROSTAT0.4 MG SL (03:37)
[2017-08-26] MEDS ORDERED: OXYCODONE HCL5 M1 PO (03:44)
[2017-08-26 03:45] LABS: ABG BASE EXCESS -0.5 mmol/L (-2.0-2.0); ABG HCO3 23.8 mmol/l (22-26); ABG O2 SATURATION 87.8 % (95-97); ARTERIAL BLOOD GAS PCO2 40.3 mmHg (35-45); ARTERIAL BLOOD GAS PH 7.389 (7.35-7.45); ARTERIAL BLOOD GAS PO2 58.8 mmHg (80-90)
[2017-08-26] MEDS ORDERED: CALPHRON667 MG PO (03:45)
[2017-08-26] MEDS ORDERED: PLAVIX75 M1 PO (03:45)
[2017-08-26] MEDS ORDERED: KLOR-CON M1010 ME1 PO (03:45)
[2017-08-26] MEDS ORDERED: PROTONIX40 MG PO (03:46)
[2017-08-26] MEDS ORDERED: RENA-VITE RX T1 EACH PO (03:46)
[2017-08-26] MEDS ORDERED: SALINE NOSE SPR45 ML NAS (03:47)
[2017-08-26] MEDS ORDERED: SENNA8.6 MG PO (03:47)
[2017-08-26] MEDS ORDERED: XIFAXAN550 MG PO (03:47)
[2017-08-26] MEDS ORDERED: ZYPREXA2.5 MG PO (03:48)
[2017-08-26] MEDS ORDERED: VITAMIN D50000 UNIT PO (03:48)
[2017-08-26 04:02] LABS: BASO # 0.1 10*3/uL (0.0-0.1); EOS # 0.3 10*3/uL (0.0-0.4); EOS % 2.6 % (1.0-4.0); HEMATOCRIT 31.2 % (42.0-52.0); HEMOGLOBIN 9.3 g/dl (14.0-18.0); LYMPH % 16.2 % (27.0-41.0); MEAN CELL VOLUME 89.9 fl (80.0-94.0); MEAN CORPUSCULAR HGB 26.8 pg (27.0-31.0); MEAN CORPUSCULAR HGB CONC 29.8 g/dl (33.0-37.0); MEAN PLATELET VOLUME 9.8 fl (9.6-12.3); MONO # 0.9 10*3/uL (0.1-1.0); MONO % 7.1 % (3.0-9.0); NEUT # 8.9 10*3/uL (2.3-7.9); NEUT % 72.7 % (47.0-73.0); NUCLEATED RED BLOOD CELL 0.2 % (0.0-0.0); PLATELET COUNT AUTOMATED 169 10*3/uL (130-400); RED BLOOD COUNT 3.47 10*6/uL (4.50-5.90); WHITE BLOOD COUNT 12.2 10*3/uL (4.8-10.8)
[2017-08-26 04:18] LABS: ALBUMIN 3.1 gm/dl (3.1-4.5); CREATININE 4.02 mg/dL (0.70-1.30); POTASSIUM 4.1 mmol/L (3.5-5.1); TOTAL PROTEIN 7.3 gm/dL (6.4-8.2)
[2017-08-26 04:19] LABS: TROPONIN I 0.025 ng/ml (<0.045)
== END 2017-08-26 04:55 | disposition home or self-care (01) ==
LOC: ED 03:05
PROVIDERS: Emergency Medicine
DX: N17.9 Acute kidney failure, unspecified (principal); I13.0 Hypertensive heart and chronic kidney disease with heart failure and stage 1 through stage 4 chronic kidney disease, or unspecified chronic kidney disease; E11.22 Type 2 diabetes mellitus with diabetic chronic kidney disease; N18.9 Chronic kidney disease, unspecified; I50.9 Heart failure, unspecified; G47.33 Obstructive sleep apnea (adult) (pediatric); E66.01 Morbid (severe) obesity due to excess calories; I48.91 Unspecified atrial fibrillation; J44.9 Chronic obstructive pulmonary disease, unspecified; I25.2 Old myocardial infarction; Z95.1 Presence of aortocoronary bypass graft; Z98.890 Other specified postprocedural states; Z87.891 Personal history of nicotine dependence; Z79.899 Other long term (current) drug therapy; Z79.4 Long term (current) use of insulin; Z99.81 Dependence on supplemental oxygen; Z88.6 Allergy status to analgesic agent; Z88.8 Allergy status to other drugs, medicaments and biological substances

== ENCOUNTER 2017-09-08 21:03 | Emergency (ER) | payer OTHER ==
[~2017-09-08] VITALS: Ht 170.1 cm; Wt 93.0 kg
[~2017-09-08 21:03] MED LIST changes: +BREO ELLIPTA 11 EACH INH; +CALPHRON667 MG PO; +CARDIZEM LA360 MG PO; +DOCUSATE SOD100 MG PO; +ELIQUIS2.5 M1 PO; +KLOR-CON M1010 ME1 PO; +LEVEMIR100 UNIT/1 SC; +LYRICA50 M1 PO; +MELATONIN3 MG PO; +MIDODRINE HCL10 MG PO; +NITROSTAT0.4 MG SL; +OXYCODONE HCL5 M1 PO; +PROTONIX40 MG PO; +RENA-VITE RX T1 EACH PO; +SALINE NOSE SPR45 ML NAS; +SENNA8.6 MG PO; +TYLENOL325 M3 PO; +VITAMIN D50000 UNIT PO; +XIFAXAN550 MG PO; +ZYPREXA2.5 MG PO
[2017-09-08 22:04] LABS: BILIRUBIN 2+ (NEGATIVE); BLOOD NEGATIVE (NEGATIVE); CLARITY CLEAR (CLEAR); COLOR YELLOW (YELLOW); GLUCOSE TRACE (NEGATIVE); KETONE 1+ (NEGATIVE); LEUKO ESTERASE NEGATIVE (NEGATIVE); NITRITE NEGATIVE (NEGATIVE); SPECIFIC GRAVITY >= 1.030 (1.005-1.030)
[2017-09-08 22:11] LABS: BACTERIA 1+
[2017-09-08] MEDS ORDERED: CIPRO500 MG PO (23:14)
== END 2017-09-08 23:20 | disposition home or self-care (01) ==
LOC: ED 21:03
PROVIDERS: Emergency Medicine
DX: S09.90XA Unspecified injury of head, initial encounter (principal); N39.0 Urinary tract infection, site not specified; I13.0 Hypertensive heart and chronic kidney disease with heart failure and stage 1 through stage 4 chronic kidney disease, or unspecified chronic kidney disease; E11.22 Type 2 diabetes mellitus with diabetic chronic kidney disease; N18.9 Chronic kidney disease, unspecified; I50.9 Heart failure, unspecified; I48.91 Unspecified atrial fibrillation; I25.2 Old myocardial infarction; E66.01 Morbid (severe) obesity due to excess calories; G47.33 Obstructive sleep apnea (adult) (pediatric); Z99.81 Dependence on supplemental oxygen; Z86.711 Personal history of pulmonary embolism; Z98.890 Other specified postprocedural states; Z87.891 Personal history of nicotine dependence; Z79.899 Other long term (current) drug therapy; Z79.4 Long term (current) use of insulin; Z88.6 Allergy status to analgesic agent; Z88.8 Allergy status to other drugs, medicaments and biological substances; W05.0XXA Fall from non-moving wheelchair, initial encounter; Y93.89 Activity, other specified; Y92.89 Other specified places as the place of occurrence of the external cause; Y99.9 Unspecified external cause status

== ENCOUNTER → 2017-11-07 | Outpatient (CLI) | payer OTHER ==
[~2017-11-07] MED LIST changes: +CIPRO500 MG PO
== END | disposition home or self-care (01) ==
LOC: WOUNDCARE 01:33
DX: T87.89 Other complications of amputation stump (principal); E11.622 Type 2 diabetes mellitus with other skin ulcer; L97.821 Non-pressure chronic ulcer of other part of left lower leg limited to breakdown of skin; E11.621 Type 2 diabetes mellitus with foot ulcer; L97.411 Non-pressure chronic ulcer of right heel and midfoot limited to breakdown of skin; E11.51 Type 2 diabetes mellitus with diabetic peripheral angiopathy without gangrene; I10 Essential (primary) hypertension; E66.01 Morbid (severe) obesity due to excess calories; I21.9 Acute myocardial infarction, unspecified; I25.2 Old myocardial infarction; Z68.31 Body mass index [BMI] 31.0-31.9, adult; Z87.891 Personal history of nicotine dependence; Z86.711 Personal history of pulmonary embolism; Z89.421 Acquired absence of other right toe(s); Y83.5 Amputation of limb(s) as the cause of abnormal reaction of the patient, or of later complication, without mention of misadventure at the time of the procedure

== ENCOUNTER → 2017-11-16 | Outpatient (CLI) | payer OTHER | END | disposition home or self-care (01) | LOC: WOUNDCARE 20:09 | DX: T87.89 Other complications of amputation stump (principal); E11.622 Type 2 diabetes mellitus with other skin ulcer; L97.821 Non-pressure chronic ulcer of other part of left lower leg limited to breakdown of skin; E11.621 Type 2 diabetes mellitus with foot ulcer; L97.411 Non-pressure chronic ulcer of right heel and midfoot limited to breakdown of skin; E11.65 Type 2 diabetes mellitus with hyperglycemia; E11.51 Type 2 diabetes mellitus with diabetic peripheral angiopathy without gangrene; I10 Essential (primary) hypertension; E66.01 Morbid (severe) obesity due to excess calories; I25.2 Old myocardial infarction; Z87.891 Personal history of nicotine dependence; Z68.31 Body mass index [BMI] 31.0-31.9, adult; Z86.711 Personal history of pulmonary embolism; Y83.5 Amputation of limb(s) as the cause of abnormal reaction of the patient, or of later complication, without mention of misadventure at the time of the procedure ==

== ENCOUNTER → 2017-11-23 | Outpatient (CLI) | payer OTHER | END | disposition home or self-care (01) | LOC: WOUNDCARE 03:43 | DX: T87.89 Other complications of amputation stump (principal); E11.621 Type 2 diabetes mellitus with foot ulcer; L97.411 Non-pressure chronic ulcer of right heel and midfoot limited to breakdown of skin; E11.622 Type 2 diabetes mellitus with other skin ulcer; L97.821 Non-pressure chronic ulcer of other part of left lower leg limited to breakdown of skin; E11.65 Type 2 diabetes mellitus with hyperglycemia; E11.51 Type 2 diabetes mellitus with diabetic peripheral angiopathy without gangrene; I10 Essential (primary) hypertension; E66.01 Morbid (severe) obesity due to excess calories; I25.2 Old myocardial infarction; Z86.711 Personal history of pulmonary embolism; Z68.31 Body mass index [BMI] 31.0-31.9, adult; Z87.891 Personal history of nicotine dependence; Y83.5 Amputation of limb(s) as the cause of abnormal reaction of the patient, or of later complication, without mention of misadventure at the time of the procedure ==

== ENCOUNTER → 2017-11-30 | Outpatient (CLI) | payer OTHER | END | disposition home or self-care (01) | LOC: WOUNDCARE 00:32 | DX: T87.89 Other complications of amputation stump (principal); E11.622 Type 2 diabetes mellitus with other skin ulcer; L97.821 Non-pressure chronic ulcer of other part of left lower leg limited to breakdown of skin; E11.621 Type 2 diabetes mellitus with foot ulcer; L97.411 Non-pressure chronic ulcer of right heel and midfoot limited to breakdown of skin; E11.51 Type 2 diabetes mellitus with diabetic peripheral angiopathy without gangrene; E11.65 Type 2 diabetes mellitus with hyperglycemia; Z86.711 Personal history of pulmonary embolism; E66.01 Morbid (severe) obesity due to excess calories; I25.2 Old myocardial infarction; Z87.891 Personal history of nicotine dependence; Y83.5 Amputation of limb(s) as the cause of abnormal reaction of the patient, or of later complication, without mention of misadventure at the time of the procedure ==

== ENCOUNTER → 2017-12-07 | Outpatient (CLI) | payer OTHER | END | disposition home or self-care (01) | LOC: WOUNDCARE 04:47 | DX: T87.89 Other complications of amputation stump (principal); E11.622 Type 2 diabetes mellitus with other skin ulcer; L97.821 Non-pressure chronic ulcer of other part of left lower leg limited to breakdown of skin; E11.621 Type 2 diabetes mellitus with foot ulcer; L97.411 Non-pressure chronic ulcer of right heel and midfoot limited to breakdown of skin; E11.51 Type 2 diabetes mellitus with diabetic peripheral angiopathy without gangrene; E11.65 Type 2 diabetes mellitus with hyperglycemia; I10 Essential (primary) hypertension; E66.01 Morbid (severe) obesity due to excess calories; I25.2 Old myocardial infarction; Z86.711 Personal history of pulmonary embolism; Z87.891 Personal history of nicotine dependence; Y83.5 Amputation of limb(s) as the cause of abnormal reaction of the patient, or of later complication, without mention of misadventure at the time of the procedure ==

== ENCOUNTER → 2017-12-21 | Outpatient (CLI) | payer OTHER | END | disposition home or self-care (01) | LOC: WOUNDCARE 02:47 | DX: T87.89 Other complications of amputation stump (principal); E11.621 Type 2 diabetes mellitus with foot ulcer; L97.411 Non-pressure chronic ulcer of right heel and midfoot limited to breakdown of skin; E11.622 Type 2 diabetes mellitus with other skin ulcer; L97.821 Non-pressure chronic ulcer of other part of left lower leg limited to breakdown of skin; E11.65 Type 2 diabetes mellitus with hyperglycemia; E11.51 Type 2 diabetes mellitus with diabetic peripheral angiopathy without gangrene; E66.01 Morbid (severe) obesity due to excess calories; I25.2 Old myocardial infarction; I10 Essential (primary) hypertension; Z86.31 Personal history of diabetic foot ulcer; Z86.711 Personal history of pulmonary embolism; Z87.891 Personal history of nicotine dependence ==

== ENCOUNTER → 2018-04-24 | Outpatient (CLI) | payer MEDICARE, OTHER ==
[~2018-04-24] MED LIST changes: +CALCIUM ACETAT667 MG PO; -CALPHRON667 MG PO; +CYCLOBENZAPRINE10 MG PO; -DOCUSATE SOD100 MG PO; -ELIQUIS2.5 M1 PO; -MIDODRINE HCL10 MG PO; +MIDODRINE HCL5 M1 PO; +ROBAXIN-750750 MG PO; +STOOL SOFTENER100 M3 PO; +THERA-D4000 UNIT PO; +VANCO 1.51.5 GM/500 IV; +VELTASSA8.4 GM PO
== END | disposition home or self-care (01) ==
LOC: WOUNDCARE 02:24
DX: T87.89 Other complications of amputation stump (principal); E11.622 Type 2 diabetes mellitus with other skin ulcer; L97.821 Non-pressure chronic ulcer of other part of left lower leg limited to breakdown of skin; E11.51 Type 2 diabetes mellitus with diabetic peripheral angiopathy without gangrene; S91.104D Unspecified open wound of right lesser toe(s) without damage to nail, subsequent encounter; E11.65 Type 2 diabetes mellitus with hyperglycemia; E66.01 Morbid (severe) obesity due to excess calories; I25.2 Old myocardial infarction; J44.9 Chronic obstructive pulmonary disease, unspecified; I48.91 Unspecified atrial fibrillation; G47.33 Obstructive sleep apnea (adult) (pediatric); E11.22 Type 2 diabetes mellitus with diabetic chronic kidney disease; I13.0 Hypertensive heart and chronic kidney disease with heart failure and stage 1 through stage 4 chronic kidney disease, or unspecified chronic kidney disease; N18.9 Chronic kidney disease, unspecified; I50.9 Heart failure, unspecified; Z95.820 Peripheral vascular angioplasty status with implants and grafts; Z89.421 Acquired absence of other right toe(s); Z87.891 Personal history of nicotine dependence; Z86.711 Personal history of pulmonary embolism; Z68.31 Body mass index [BMI] 31.0-31.9, adult; X58.XXXD Exposure to other specified factors, subsequent encounter; Y83.5 Amputation of limb(s) as the cause of abnormal reaction of the patient, or of later complication, without mention of misadventure at the time of the procedure

== ENCOUNTER → 2018-05-29 | Outpatient (CLI) | payer MEDICAID, MEDICARE, OTHER | END | disposition home or self-care (01) | LOC: WOUNDCARE 00:14 | DX: T87.89 Other complications of amputation stump (principal); E11.622 Type 2 diabetes mellitus with other skin ulcer; L97.821 Non-pressure chronic ulcer of other part of left lower leg limited to breakdown of skin; E11.621 Type 2 diabetes mellitus with foot ulcer; L97.411 Non-pressure chronic ulcer of right heel and midfoot limited to breakdown of skin; S91.104D Unspecified open wound of right lesser toe(s) without damage to nail, subsequent encounter; E11.51 Type 2 diabetes mellitus with diabetic peripheral angiopathy without gangrene; E11.65 Type 2 diabetes mellitus with hyperglycemia; E66.01 Morbid (severe) obesity due to excess calories; I25.2 Old myocardial infarction; I10 Essential (primary) hypertension; Z86.711 Personal history of pulmonary embolism; Z87.891 Personal history of nicotine dependence; Z68.31 Body mass index [BMI] 31.0-31.9, adult; X58.XXXD Exposure to other specified factors, subsequent encounter; Y83.5 Amputation of limb(s) as the cause of abnormal reaction of the patient, or of later complication, without mention of misadventure at the time of the procedure ==

== ENCOUNTER → 2018-06-19 | Outpatient (CLI) | payer MEDICARE, OTHER | END | disposition home or self-care (01) | LOC: WOUNDCARE 08:22 | DX: T87.89 Other complications of amputation stump (principal); E11.622 Type 2 diabetes mellitus with other skin ulcer; L97.821 Non-pressure chronic ulcer of other part of left lower leg limited to breakdown of skin; L97.811 Non-pressure chronic ulcer of other part of right lower leg limited to breakdown of skin; E11.621 Type 2 diabetes mellitus with foot ulcer; L97.511 Non-pressure chronic ulcer of other part of right foot limited to breakdown of skin; L97.411 Non-pressure chronic ulcer of right heel and midfoot limited to breakdown of skin; E11.51 Type 2 diabetes mellitus with diabetic peripheral angiopathy without gangrene; I10 Essential (primary) hypertension; I25.2 Old myocardial infarction; E66.01 Morbid (severe) obesity due to excess calories; Z68.31 Body mass index [BMI] 31.0-31.9, adult; Z86.711 Personal history of pulmonary embolism; Z87.891 Personal history of nicotine dependence; Y83.5 Amputation of limb(s) as the cause of abnormal reaction of the patient, or of later complication, without mention of misadventure at the time of the procedure ==

== ENCOUNTER → 2018-07-10 | Outpatient (CLI) | payer MEDICARE, OTHER | END | disposition home or self-care (01) | LOC: WOUNDCARE 00:50 | DX: T87.89 Other complications of amputation stump (principal); E11.622 Type 2 diabetes mellitus with other skin ulcer; L97.822 Non-pressure chronic ulcer of other part of left lower leg with fat layer exposed; L97.811 Non-pressure chronic ulcer of other part of right lower leg limited to breakdown of skin; E11.621 Type 2 diabetes mellitus with foot ulcer; L97.511 Non-pressure chronic ulcer of other part of right foot limited to breakdown of skin; L97.411 Non-pressure chronic ulcer of right heel and midfoot limited to breakdown of skin; E11.51 Type 2 diabetes mellitus with diabetic peripheral angiopathy without gangrene; E11.65 Type 2 diabetes mellitus with hyperglycemia; I10 Essential (primary) hypertension; E66.01 Morbid (severe) obesity due to excess calories; I25.2 Old myocardial infarction; Z87.891 Personal history of nicotine dependence; Z68.31 Body mass index [BMI] 31.0-31.9, adult; Z86.711 Personal history of pulmonary embolism; Y83.5 Amputation of limb(s) as the cause of abnormal reaction of the patient, or of later complication, without mention of misadventure at the time of the procedure ==

== ENCOUNTER → 2018-07-17 | Outpatient (CLI) | payer MEDICARE, OTHER | END | disposition home or self-care (01) | LOC: WOUNDCARE 00:42 | DX: T87.89 Other complications of amputation stump (principal); E11.622 Type 2 diabetes mellitus with other skin ulcer; L97.822 Non-pressure chronic ulcer of other part of left lower leg with fat layer exposed; L97.811 Non-pressure chronic ulcer of other part of right lower leg limited to breakdown of skin; E11.621 Type 2 diabetes mellitus with foot ulcer; L97.511 Non-pressure chronic ulcer of other part of right foot limited to breakdown of skin; L97.411 Non-pressure chronic ulcer of right heel and midfoot limited to breakdown of skin; E11.65 Type 2 diabetes mellitus with hyperglycemia; E11.51 Type 2 diabetes mellitus with diabetic peripheral angiopathy without gangrene; I10 Essential (primary) hypertension; E66.01 Morbid (severe) obesity due to excess calories; I25.2 Old myocardial infarction; Z86.711 Personal history of pulmonary embolism; Z87.891 Personal history of nicotine dependence; Z68.31 Body mass index [BMI] 31.0-31.9, adult; Y83.5 Amputation of limb(s) as the cause of abnormal reaction of the patient, or of later complication, without mention of misadventure at the time of the procedure ==

== ENCOUNTER → 2018-07-24 | Outpatient (CLI) | payer MEDICARE, OTHER | END | disposition home or self-care (01) | LOC: WOUNDCARE 01:38 | DX: T87.89 Other complications of amputation stump (principal); E11.622 Type 2 diabetes mellitus with other skin ulcer; L97.811 Non-pressure chronic ulcer of other part of right lower leg limited to breakdown of skin; L97.821 Non-pressure chronic ulcer of other part of left lower leg limited to breakdown of skin; E11.621 Type 2 diabetes mellitus with foot ulcer; L97.511 Non-pressure chronic ulcer of other part of right foot limited to breakdown of skin; L97.411 Non-pressure chronic ulcer of right heel and midfoot limited to breakdown of skin; E11.51 Type 2 diabetes mellitus with diabetic peripheral angiopathy without gangrene; E11.65 Type 2 diabetes mellitus with hyperglycemia; I10 Essential (primary) hypertension; I25.2 Old myocardial infarction; E66.01 Morbid (severe) obesity due to excess calories; Z68.31 Body mass index [BMI] 31.0-31.9, adult; Z87.891 Personal history of nicotine dependence; Z86.718 Personal history of other venous thrombosis and embolism; Y83.5 Amputation of limb(s) as the cause of abnormal reaction of the patient, or of later complication, without mention of misadventure at the time of the procedure ==

== ENCOUNTER → 2018-07-31 | Outpatient (CLI) | payer MEDICARE, OTHER | END | disposition home or self-care (01) | LOC: WOUNDCARE 01:40 | DX: T87.89 Other complications of amputation stump (principal); E11.622 Type 2 diabetes mellitus with other skin ulcer; L97.821 Non-pressure chronic ulcer of other part of left lower leg limited to breakdown of skin; L97.811 Non-pressure chronic ulcer of other part of right lower leg limited to breakdown of skin; E11.621 Type 2 diabetes mellitus with foot ulcer; L97.511 Non-pressure chronic ulcer of other part of right foot limited to breakdown of skin; L97.411 Non-pressure chronic ulcer of right heel and midfoot limited to breakdown of skin; E11.51 Type 2 diabetes mellitus with diabetic peripheral angiopathy without gangrene; E11.65 Type 2 diabetes mellitus with hyperglycemia; I10 Essential (primary) hypertension; I25.2 Old myocardial infarction; E66.01 Morbid (severe) obesity due to excess calories; Z68.31 Body mass index [BMI] 31.0-31.9, adult; Z86.711 Personal history of pulmonary embolism; Z87.891 Personal history of nicotine dependence; Y83.5 Amputation of limb(s) as the cause of abnormal reaction of the patient, or of later complication, without mention of misadventure at the time of the procedure ==

== ENCOUNTER → 2018-08-09 | Outpatient (CLI) | payer MEDICARE, OTHER | END | disposition home or self-care (01) | LOC: WOUNDCARE 00:40 | DX: T87.89 Other complications of amputation stump (principal); E11.622 Type 2 diabetes mellitus with other skin ulcer; L97.821 Non-pressure chronic ulcer of other part of left lower leg limited to breakdown of skin; L97.811 Non-pressure chronic ulcer of other part of right lower leg limited to breakdown of skin; E11.621 Type 2 diabetes mellitus with foot ulcer; L97.511 Non-pressure chronic ulcer of other part of right foot limited to breakdown of skin; L97.411 Non-pressure chronic ulcer of right heel and midfoot limited to breakdown of skin; E11.65 Type 2 diabetes mellitus with hyperglycemia; E11.51 Type 2 diabetes mellitus with diabetic peripheral angiopathy without gangrene; I10 Essential (primary) hypertension; E66.01 Morbid (severe) obesity due to excess calories; I25.2 Old myocardial infarction; Z86.711 Personal history of pulmonary embolism; Z68.31 Body mass index [BMI] 31.0-31.9, adult; Z87.891 Personal history of nicotine dependence; Y83.5 Amputation of limb(s) as the cause of abnormal reaction of the patient, or of later complication, without mention of misadventure at the time of the procedure ==

== ENCOUNTER 2018-08-11 01:40 | Emergency (ER) | payer MEDICARE, OTHER ==
[~2018-08-11] VITALS: Ht 172.7 cm; Wt 91.7 kg
[~2018-08-11 01:40] MED LIST changes: -CYCLOBENZAPRINE10 MG PO; -ROBAXIN-750750 MG PO; -THERA-D4000 UNIT PO; -VANCO 1.51.5 GM/500 IV; -VELTASSA8.4 GM PO
[2018-08-11 02:30] LABS: BASO # 0.1 10*3/uL (0.0-0.1); BASO % 0.4 % (0.0-1.0); EOS % 0.2 % (1.0-4.0); HEMATOCRIT 35.3 % (42.0-52.0); HEMOGLOBIN 11.4 g/dl (14.0-18.0); LYMPH # 0.9 10*3/uL (1.3-4.4); MEAN CELL VOLUME 102.9 fl (80.0-94.0); MEAN CORPUSCULAR HGB 33.2 pg (27.0-31.0); MEAN CORPUSCULAR HGB CONC 32.3 g/dl (33.0-37.0); MEAN PLATELET VOLUME 9.2 fl (9.6-12.3); MONO # 1.1 10*3/uL (0.1-1.0); MONO % 6.2 % (3.0-9.0); NEUT # 14.8 10*3/uL (2.3-7.9); NEUT % 86.8 % (47.0-73.0); PLATELET COUNT AUTOMATED 233 10*3/uL (130-400); RED BLOOD COUNT 3.43 10*6/uL (4.50-5.90); RED CELL DISTRI WIDTH 15.6 % (0-14.5)
[2018-08-11 02:42] LABS: ALBUMIN 2.8 gm/dl (3.1-4.5); CREATININE 5.02 mg/dL (0.70-1.30); POTASSIUM 4.9 mmol/L (3.5-5.1); TOTAL PROTEIN 8.3 gm/dL (6.4-8.2)
[2018-08-11] MEDS ORDERED: CYCLOBENZAPRINE10 MG PO (04:07)
[2018-08-14] MEDS ORDERED: THERA-D4000 UNIT PO (22:59)
[2018-08-14] MEDS ORDERED: CALCIUM ACETAT667 MG PO (23:14)
[2018-08-14] MEDS ORDERED: ROBAXIN-750750 MG PO (23:17)
[2018-08-14] MEDS ORDERED: VANCO 1.51.5 GM/500 IV (23:19)
[2018-08-14] MEDS ORDERED: VELTASSA8.4 GM PO (23:20)
== END 2018-08-11 04:30 | disposition home or self-care (01) ==
LOC: ED 01:40
PROVIDERS: Student in an Organized Health Care Education/Training Program
DX: M54.5 Low back pain (principal); I48.91 Unspecified atrial fibrillation; J44.9 Chronic obstructive pulmonary disease, unspecified; I13.0 Hypertensive heart and chronic kidney disease with heart failure and stage 1 through stage 4 chronic kidney disease, or unspecified chronic kidney disease; E11.22 Type 2 diabetes mellitus with diabetic chronic kidney disease; N18.9 Chronic kidney disease, unspecified; E66.01 Morbid (severe) obesity due to excess calories; Z88.6 Allergy status to analgesic agent; Z88.8 Allergy status to other drugs, medicaments and biological substances; Z79.899 Other long term (current) drug therapy; Z79.4 Long term (current) use of insulin; Z87.891 Personal history of nicotine dependence; Z99.2 Dependence on renal dialysis

== ENCOUNTER 2018-11-23 07:42 | Inpatient (IN) | payer MEDICARE, OTHER ==
[~2018-11-23] VITALS: Ht 170.1 cm; Wt 98.9 kg
[~2018-11-23 07:42] MED LIST changes: +CYCLOBENZAPRINE10 MG PO; +ROBAXIN-750750 MG PO; +THERA-D4000 UNIT PO; +VANCO 1.51.5 GM/500 IV; +VELTASSA8.4 GM PO
[2018-11-23 07:46] VITALS: BP 121/62
--- NOTE | 2018-11-23 08:03 | NUR ---
REPOSITIONED FOR COMFORT AND HOB LOWERED TO TOLERANCE LEVEL DUE TO BACK PAIN (CHRONIC).
[2018-11-23 08:09] LABS: BASO # 0.1 10*3/uL (0.0-0.1); BASO % 0.5 % (0.0-1.0); EOS # 0.2 10*3/uL (0.0-0.4); EOS % 1.3 % (1.0-4.0); HEMOGLOBIN 10.1 g/dl (14.0-18.0); LYMPH # 0.8 10*3/uL (1.3-4.4); LYMPH % 5.3 % (27.0-41.0); MEAN CELL VOLUME 97.7 fl (80.0-94.0); MEAN CORPUSCULAR HGB CONC 29.7 g/dl (33.0-37.0); MEAN PLATELET VOLUME 9.6 fl (9.6-12.3); MONO # 0.3 10*3/uL (0.1-1.0); MONO % 2.1 % (3.0-9.0); NEUT # 13.4 10*3/uL (2.3-7.9); NEUT % 89.7 % (47.0-73.0); PLATELET COUNT AUTOMATED 155 10*3/uL (130-400); RED BLOOD COUNT 3.48 10*6/uL (4.50-5.90); RED CELL DISTRI WIDTH 18.3 % (0-14.5); WHITE BLOOD COUNT 14.9 10*3/uL (4.8-10.8)
--- NOTE | 2018-11-23 08:19 | NUR ---
RESIDENT IS AT THE BEDSIDE.
[2018-11-23 08:20] LABS: ACT PARTIAL THROMBO TIME 34.1 SECONDS (20.0-32.1); INTERNATIONAL NORM RATIO 1.2 (2.0-3.5)
[2018-11-23 08:21] VITALS: BP 99/49
--- NOTE | 2018-11-23 08:24 | NUR ---
DR PRINCE MADE AWARE OF URINARY STATUS AND OKAY TO HOLD OF ON ATTEMPTING TO COLLECT UA.
[2018-11-23 08:25] LABS: ALBUMIN 2.5 gm/dl (3.1-4.5); CREATININE 6.02 mg/dL (0.70-1.30); POTASSIUM 5.1 mmol/L (3.5-5.1)
[2018-11-23 08:26] LABS: TROPONIN I 0.028 ng/ml (<0.045)
[2018-11-23 08:48] VITALS: BP 107/52
--- NOTE | 2018-11-23 09:12 | NUR ---
SPOKE WITH LISA ROSARIO TO NOTIFY OF ETA TO ROOM.
--- NOTE | 2018-11-23 09:30 | NUR ---
NURSE TO NURSE TO LISA ROSARIO.
--- NOTE | 2018-11-23 09:38 | NUR ---
SPOKE WITH ABRAHAM,RECEIVING RN TO INFORM HER OF NEED FOR MRSA SURVEILLANCE. SHE WILL ADDRESS.
[2018-11-23 10:00] VITALS: BP 90/55
--- NOTE | 2018-11-23 10:00 | NUR ---
A 63, admitted to , under the services of RAJI Saucedo DO with a diagnosis of SEPSIS. Chief complaint is SOB/LETHARGY FROM DIALYSIS. Patient arrived via bed from ER. Monitor applied. Initial assessment completed. Vital signs taken and recorded. RAJI SAUCEDO DO notified of admission to the unit. Orders received. See assessment for past medical history, medications and allergies. Patient and/or family oriented to unit. [facility] visitation policy reviewed. Clothing/patient valuable form completed. ABRAHAM APONTE
--- NOTE | 2018-11-23 10:15 | NUR ---
DOLORES FLOREZ NOTIFIED OF PATIENT'S ADMISSION AND PAPERWORK REQUESTED/ FAXED TO FACILITY TO UPDATE PATIENT'S MED REC AND ADMISSION INFORMATION.
--- NOTE | 2018-11-23 11:32 | NUR ---
[facility] NOTIFIED OF CONSULT FOR DR. FINNEY. ANSWERING SERVICE STATES THAT THEY WILL NOTIFY DR FINNEY OF CONSULT.
[2018-11-23] MEDS ORDERED: DULCOLAX10 M1 R (11:35)
[2018-11-23] MEDS ORDERED: FLONASE ALLERG9.9 ML NAS (11:36)
[2018-11-23] MEDS ORDERED: LACTULOSE20 GM/30 M PO (11:38)
[2018-11-23] MEDS ORDERED: TOPROL XL100 MG PO (11:44)
[2018-11-23] MEDS ORDERED: BASAG SOL SC (11:47)
[2018-11-23] MEDS ORDERED: SORE THROAT LO1 EAC1 MM (11:49)
[2018-11-23] MEDS ORDERED: CYCLOBENZAPRINE10 MG PO (11:53)
[2018-11-23] MEDS ORDERED: DIGOX125 MCG PO (11:54)
[2018-11-23] MEDS ORDERED: OXYCODONE HCL10 M1 PO (11:56)
[2018-11-23] MEDS ORDERED: CALCIUM ACETAT667 M2 PO (11:57)
[2018-11-23] MEDS ORDERED: ZOCOR40 MG PO (12:00)
--- NOTE | 2018-11-23 12:02 | NUR ---
MED REC UPDATED VIA LIST PROVIDED BY DOLORES FLOREZ. MADE AWARE. SAID THANKS.
--- NOTE | 2018-11-23 14:00 | NUR ---
DR REBOLLEDO NOTIFIED OF PATIENTS WOUNDS AND STATES THAT HE WILL LOOK INTO PUTTING WOUND CARE ORDERS IN.
[2018-11-23 16:00] VITALS: BP 92/47
[2018-11-23 16:18] VITALS: BP 102/54
--- NOTE | 2018-11-23 16:19 | NUR ---
PT GIVEN 10 MG OXYCODONE PER PRN ORDER ON EMAR FOR PAIN TO RIGHT LEG/FOOT. WILL MONITOR FOR EFFECTIVENESS. PT MADE AWARE OF DIET CHANGES PER DR FINNEY REQUEST. PT ANTIBIOTICS HUNG AND ALL OTHER EVENING MEDICATIONS GIVEN AT THIS TIME.
--- NOTE | 2018-11-23 17:19 | NUR ---
OXYCODONE EFFECTIVE PER PT.
--- NOTE | 2018-11-23 20:24 | NUR ---
NOTIFIED OF BP 82/54. NO NEW ORDERS RECEIVED. WILL CONTINUE TO MONITOR.
--- NOTE | 2018-11-23 23:05 | NUR ---
INFORMED PT IS A DIABETIC. NO SUGAR CHECKS WERE ORDERED. TO PUT ORDERS IN.
[2018-11-24] VITALS: BP 139/78
[2018-11-24 06:39] LABS: HEMATOCRIT 31.4 % (42.0-52.0); HEMOGLOBIN 9.3 g/dl (14.0-18.0); MEAN CELL VOLUME 98.1 fl (80.0-94.0); MEAN CORPUSCULAR HGB 29.1 pg (27.0-31.0); MEAN CORPUSCULAR HGB CONC 29.6 g/dl (33.0-37.0); MEAN PLATELET VOLUME 9.9 fl (9.6-12.3); PLATELET COUNT AUTOMATED 134 10*3/uL (130-400); RED CELL DISTRI WIDTH 18.5 % (0-14.5); WHITE BLOOD COUNT 7.8 10*3/uL (4.8-10.8)
--- NOTE | 2018-11-24 07:02 | NUR ---
PT OFF THE FLOOR FOR DIALYSIS AT THIS TIME.
[2018-11-24 07:14] LABS: CREATININE 6.79 mg/dL (0.70-1.30)
[2018-11-24 07:26] LABS: PLATELET SUFFICIENCY NORMAL (NORMAL); SCHISTOCYTES FEW; THYROID STIM HORMONE (HS) 4.32 uIU/ml (0.358-4.75); TOTAL CELLS COUNTED 100 #CELLS
[2018-11-24 07:29] LABS: ACT PARTIAL THROMBO TIME 33.9 SECONDS (20.0-32.1); INTERNATIONAL NORM RATIO 1.2 (2.0-3.5)
[2018-11-24 07:32] LABS: PHOSPHOROUS 10.6 mg/dL (2.5-4.9); POTASSIUM 6.1 mmol/L (3.5-5.1)
--- NOTE | 2018-11-24 07:33 | NUR ---
NOTIFIED DR. GARZA OF CRITICAL K+6.1 AND PHOSPHOUS 10.6. PATIENT IN DIALYSIS. NO NEW ORDERS RECEIVED.
[2018-11-24 08:05] LABS: VITAMIN D, 25-HYDROXY 52.1 ng/mL (30-100)
[2018-11-24 12:00] VITALS: BP 97/60
--- NOTE | 2018-11-24 12:31 | NUR ---
TYLENOL GIVEN FOR MCNEIL. WILL MONITOR.
--- NOTE | 2018-11-24 13:16 | NUR ---
TYLENOL EFFECTIVE PER PT.
--- NOTE | 2018-11-24 14:00 | NUR ---
PHYSICAL THERAPY PT EVAL COMPLETED ON LEVEL 5: FULL EVALUATION TO FOLLOW. RECOMMEND PT WHILE HERE TO ADDRESS DECREASED STRENGTH AND FUNCTIONAL MOBILITY. PT EVAL IS MODERATE COMPLEXITY : 30401. D/C RECOMMENDATIONS AT THIS TIME ARE TO RETURN TO [facility] WHEN MEDICALLY STABLE AND WOULD ADVISE SNF IF HE MEETS THEIR CRITERIA AND HAS SKILLED DAYS REMAINING. HE STATES HE IS WAITING FOR A PROSTHESIS FOR THE LLE. SEEN TODAY FOR EVAL AND WORK ON BED MOBILITY AND SAT ON EDGE OF BED FOR TRUNK STRENGTH AND BALANCE. THANK YOU FOR REFERRAL MERARY DOHERTY PT
[2018-11-24 16:00] VITALS: BP 125/66
[2018-11-24 20:00] VITALS: BP 112/61
--- NOTE | 2018-11-24 21:24 | NUR ---
OXY IR GIVEN FOR C/O GENERALIZED PAIN 11/13. CALL LIGHT IN REACH.
--- NOTE | 2018-11-24 22:08 | NUR ---
OXY EFFECTIVE PER PT. SITTING IN BED WATCHING TV WITH NO OTHER VOICED CONCERNS.
[2018-11-25] VITALS: BP 123/64
--- NOTE | 2018-11-25 00:35 | NUR ---
RESTING IN BED WITH EYES CLOSED. CALL LIGHT WITHIN REACH; BED IN LOW LOCKED POSITION.
--- NOTE | 2018-11-25 06:00 | NUR ---
BLOOD SUGAR 238; COVERAGE GIVEN PER EMAR. PT. NOT WEARING 02 AT THIS TIME. PULSE OX 94% ON ROOM AIR. REFUSES TO WEAR OXYGEN AT THIS TIME. NO DISTRESS NOTED. RESPIRATIONS EASY ON ROOM AIR. CALL LIGHT WITHIN REACH.
[2018-11-25 06:23] LABS: HEMATOCRIT 31.1 % (42.0-52.0); HEMOGLOBIN 9.2 g/dl (14.0-18.0); MEAN CELL VOLUME 97.2 fl (80.0-94.0); MEAN CORPUSCULAR HGB 28.8 pg (27.0-31.0); MEAN CORPUSCULAR HGB CONC 29.6 g/dl (33.0-37.0); MEAN PLATELET VOLUME 9.5 fl (9.6-12.3); NUCLEATED RED BLOOD CELL 0.4 % (0.0-0.0); PLATELET COUNT AUTOMATED 136 10*3/uL (130-400); RED CELL DISTRI WIDTH 18.4 % (0-14.5); WHITE BLOOD COUNT 5.6 10*3/uL (4.8-10.8)
[2018-11-25 06:58] LABS: BASOPHILS 1 % (0-1); PLATELET SUFFICIENCY NORMAL (NORMAL); TOTAL CELLS COUNTED 100 #CELLS
[2018-11-25 07:00] LABS: CREATININE 4.3 mg/dL (0.70-1.30)
[2018-11-25 07:11] LABS: POTASSIUM 4.2 mmol/L (3.5-5.1)
[2018-11-25 08:00] VITALS: BP 128/71
[2018-11-25 12:00] VITALS: BP 135/81
[2018-11-25 16:00] VITALS: BP 150/92
[2018-11-25 20:00] VITALS: BP 132/92
[2018-11-26] VITALS: BP 130/81
[2018-11-26 06:27] LABS: HEMATOCRIT 33.8 % (42.0-52.0); MEAN CELL VOLUME 97.4 fl (80.0-94.0); MEAN CORPUSCULAR HGB 28.8 pg (27.0-31.0); MEAN CORPUSCULAR HGB CONC 29.6 g/dl (33.0-37.0); MEAN PLATELET VOLUME 9.8 fl (9.6-12.3); NUCLEATED RED BLOOD CELL 0.1 10*3/uL (0.0-0.0); NUCLEATED RED BLOOD CELL 0.5 % (0.0-0.0); PLATELET COUNT AUTOMATED 148 10*3/uL (130-400); RED BLOOD COUNT 3.47 10*6/uL (4.50-5.90); RED CELL DISTRI WIDTH 18.1 % (0-14.5); WHITE BLOOD COUNT 9.8 10*3/uL (4.8-10.8)
[2018-11-26 06:33] LABS: CREATININE 5.32 mg/dL (0.70-1.30); POTASSIUM 4.7 mmol/L (3.5-5.1)
[2018-11-26 06:50] LABS: OVALOCYTES FEW; PLATELET SUFFICIENCY NORMAL (NORMAL); POLYCHROMASIA SLIGHT; TOTAL CELLS COUNTED 100 #CELLS
--- NOTE | 2018-11-26 06:50 | NUR ---
IKE TRUJILLO [id number] Please refer to the physician's history and physical for past medical history, comorbid conditions, and allergies. Diagnosis: SEPSIS Wenceslao Score: 10,HIGH RISK WOUND DESCRIPTIONS: Wound Number: 1 Location of the wound: left stump Type of wound: unstageable Thickness: Full Size: 2.5cm x 3.0cm x <0.1cm Tunneling: none Undermining: none Sinus Tract: none Presence of Exudate: none Amount: None Color: Brown, yellow Odor: None Periwound Skin Appearance: Normal Wound edges: approximated Pain (associated with wound): none at time of assessment How does patient state this happened? pt unable to state how this happened Wound Number: 2 Location of the wound: right 4th toe Type of wound: unstageable Thickness: Full Size: 4.0cm x 3.0cm x <0.1cm Tunneling: none Undermining: none Sinus Tract: none Presence of Exudate: none Amount: None Color: Brown, yellow, black Odor: medium Periwound Skin Appearance: erythema Wound edges: approximated Pain (associated with wound): none at time of assessment How does patient state this happened? pt unable to state how this happened Wound Number:3 See wound number 5 & 6 Wound Number: 4 Location of the wound: penis Type of wound: stage 1 Size: 0.6cm x 0.4cm x <0.1cm Tunneling: none Undermining: none Sinus Tract: none Presence of Exudate: none Amount: None Color: red Odor: none Periwound Skin Appearance: normal Wound edges: closed Pain (associated with wound): none at time of assessment How does patient state this happened? pt unable to state how this happened Wound Number: 5 Location of the wound: proximal left groin Thickness: Partial Type of wound: stage 2 Size: 0.1cm x 5.5cm x 0.1 Tunneling: none Undermining: none Sinus Tract: none Presence of Exudate: serosanguneious Amount: light Color: red Odor: none Periwound Skin Appearance: normal Wound edges: closed Pain (associated with wound): none at time of assessment How does patient state this happened? pt unable to state how this happened Wound Number: 6 Location of the wound: distal left groin Thickness: Partial Type of wound: stage 2 Size: 0.2cm x 3.7cm x 0.1 Tunneling: none Undermining: none Sinus Tract: none Presence of Exudate: serosanguneious Amount: light Color: red Odor: none Periwound Skin Appearance: normal Wound edges: closed Pain (associated with wound): none at time of assessment How does patient state this happened? pt unable to state how this happened Wound Number: 7 Location of the wound: left buttocks proximal Thickness: Partial Type of wound: DTI Size: 1.0cm x 2.2cm x <0.1 Tunneling: none Undermining: none Sinus Tract: none Presence of Exudate: serosanguneious Amount: light Color: red, purple Odor: none Periwound Skin Appearance: normal Wound edges: closed Pain (associated with wound): none at time of assessment How does patient state this happened? pt unable to state how this happened Wound Number: 8 Location of the wound: left buttocks distal Thickness: Partial Type of wound: DTI Size: 5.0cm x 0.2cm x <0.1 Tunneling: none Undermining: none Sinus Tract: none Presence of Exudate: serosanguneious Amount: light Color: red, purple Odor: none Periwound Skin Appearance: normal Wound edges: closed Pain (associated with wound): none at time of assessment How does patient state this happened? pt unable to state how this happened Surface the patient is resting on: Position Pro SKIN PREVENTION RECOMMENDATION: 1. Pressure redistribution support surface as appropriate 2. Elevate heels 3. Remove boots/TEDS every shift and reapply 4. Head of bed 30 degrees as tolerated 5. Assess nutrition and hydration 6. Manage moisture 7. Avoid the use of containment devices while in bed 8. Use absorptive products on surfaces limit layers of linens on bed 9. Turn and reposition every 1-2 hours in bed and every 1 hour in chair as tolerated 10. Weight shifts every 15 minutes while up in chair 11. Offloading with pillows or device to keep heels elevated off bed 12. Monitor skin at least every shift 13. Inspect under medical devices twice a day WOUND TREATMENT RECOMMENDATIONS: Wheelchair cushion when oob. Heel raiser pro boots to right lower extremity. Full thickness guidelines: Cleanse left stump with nss and apply sureprep around the wound therahoney to wound bed and cover with optifoam gentle. Unstageable guidelines: Cleanse right 4th toe with betadine and cover with dsd daily and prn for soiling. Cleanse penis with soap and water and apply hydraguard every shift and prn for soiling. Stage 2 guidelines: Cleanse left groin proximal, left groin distal, left buttocks proximal and left buttocks distal with soap and water and apply calazime every shift and prn for soiling. Consult Dr. Taylor since patient follows with him outpatient for wound care. Imaging studies to right 4th toe due to non-healing wound. Patient follows with outpatient for vascular.
--- NOTE | 2018-11-26 07:24 | NUR ---
24 HR chart check completed.
[2018-11-26 08:00] VITALS: BP 137/60
--- NOTE | 2018-11-26 08:03 | NUR ---
24 HR chart check completed.
--- NOTE | 2018-11-26 08:08 | NUR ---
Patient is group home at [facility]. When medically stable patient can return. RADIAL DRILL PRESS OPERATOR faxed updates to [facility]. -TRELL Dobbins
--- NOTE | 2018-11-26 10:01 | NUR ---
Dr. Alcantara notified of wound care recommendations.
--- NOTE | 2018-11-26 10:30 | NUR ---
PHYSICAL THERAPY Patient seen this am 1:1 for therapy visit and was resting supine in bed upon therapist arrival. Patient identified by name / and c/o 5/10 low back pain following supine to sit EOB transfer with Mod A x 2. Patient tolerated static EOB sit x 6 minutes, CGA x 1, prior to quick onset fatigue, secondary to POOR core strength. Patient request transfer back to bed, MOD A x 2 and remained in bed with call light, tray table, telephone a;nd bed alarm. Patient would benefit from SNF to improve core strength and safe transfers. Will continue per POC as tolerated, total treatment time 14 minutes. Rene Souza, BUSINESS RECORDS MANAGER
--- NOTE | 2018-11-26 10:40 | NUR ---
Occupational therapy orders received and chart reviewed. OT evaluation completed in full and POC established on floor five. Patient precautions include L BKA, Min-Mod Ax2 EOB, fall risk, future R toe amputation per patient, and IV lines. Per OT eval and POC, OT recommends SNF. Patient would benefit from continued OT treatment to maximize independence in ADLs and transfers. Patient is moderate complexity, [address]. Thank you for the referral. Rosaline Bansal OTR/Morris
[2018-11-26 12:00] VITALS: BP 137/60
--- NOTE | 2018-11-26 12:49 | NUR ---
PT IS PENITENTIARY CARE AT [facility] AND STATES HE WILL RETURN THERE ON DISCHARGE. WILL CONTINUE TO FOLLOW.
--- NOTE | 2018-11-26 15:00 | NUR ---
REPORT RECEIVED. PT IN DIALYSIS AT THIS TIME. TOLERATING WELL. VOICES NO NEEDS.
[2018-11-26 16:00] VITALS: BP 134/62
[2018-11-26 20:00] VITALS: BP 136/74
--- NOTE | 2018-11-26 23:00 | NUR ---
TOOK OVER CARE OF PT, PT LYING IN BED, SLEEPING. RESPIRATIONS EASY AND UNLABORED WITH NO S/S OF DISTRESS. HOB ELEVATED, SAFETY MEASURES IN PLACE. CALL LIGHT IN REACH.
[2018-11-27] VITALS: BP 142/80
--- NOTE | 2018-11-27 | NUR ---
ASSESSMENT COMPLETE. NO NEW ABNORMALITIES NOTED. PT DENIES NEEDING ANYTHING AT THIS TIME.
--- NOTE | 2018-11-27 00:59 | NUR ---
24 HR chart check completed.
--- NOTE | 2018-11-27 03:00 | NUR ---
PT DRESSINGS APPLIED AT THIS TIME. PT TOLERATED WELL. NO S/S OF DISTRESS AND NO COMPLAINTS VOICED. CALL LIGHT IN REACH.
[2018-11-27 06:30] LABS: HEMATOCRIT 35.9 % (42.0-52.0); HEMOGLOBIN 10.7 g/dl (14.0-18.0); MEAN CELL VOLUME 98.1 fl (80.0-94.0); MEAN CORPUSCULAR HGB 29.2 pg (27.0-31.0); MEAN CORPUSCULAR HGB CONC 29.8 g/dl (33.0-37.0); MEAN PLATELET VOLUME 9.4 fl (9.6-12.3); NUCLEATED RED BLOOD CELL 0.1 10*3/uL (0.0-0.0); NUCLEATED RED BLOOD CELL 0.9 % (0.0-0.0); PLATELET COUNT AUTOMATED 138 10*3/uL (130-400); RED BLOOD COUNT 3.66 10*6/uL (4.50-5.90); RED CELL DISTRI WIDTH 18.4 % (0-14.5)
[2018-11-27 06:45] LABS: CREATININE 3.67 mg/dL (0.70-1.30); PHOSPHOROUS 5.7 mg/dL (2.5-4.9); POTASSIUM 4.4 mmol/L (3.5-5.1)
[2018-11-27 07:32] LABS: PLATELET SUFFICIENCY NORMAL (NORMAL); POLYCHROMASIA SLIGHT; TOTAL CELLS COUNTED 100 #CELLS
[2018-11-27 07:33] LABS: OVALOCYTES FEW
[2018-11-27 08:00] VITALS: BP 140/84
--- NOTE | 2018-11-27 08:00 | NUR ---
Patient resting quietly with no c/o discomfort. Respirations easy and regular. Vital signs stable. No overt distress. DENZEL SORENSEN
--- NOTE | 2018-11-27 10:02 | NUR ---
Dr. Alcantara notified of wound care recommendations.
[2018-11-27] MEDS ORDERED: PREDNISONE10 MG PO (10:23)
[2018-11-27] MEDS ORDERED: OXYCODONE HCL10 M1 PO (10:24)
--- NOTE | 2018-11-27 10:35 | NUR ---
PHYSICAL THERAPY Patient seen this am 1:1 for therapy visit and was resting supine in bed upon therapist arrival. Patient identified by name / and reports 7/10 R foot pain. Patient presents with R LE heel protector and qauze wrap and instructed on improved bed mobility. Patient transfers supine to sit EOB with MOD A x 2, tolerating EOB sit x 9 minutes prior to c/o of low back pain. Patient returned to supine in bed MAX A and remained with call light, tray table, telephone and bed alarm for safety. Will continue per POC as tolerated, total treatment time 14 minutes. Rene Souza, RIBBON WINDER
--- NOTE | 2018-11-27 10:47 | NUR ---
OT NOTE Pt was seen this A.M. 1:1 for 17 minute OT session. Upon arrival pt was supine in bed. Pt identified by name and and had complaints of "8-9/10 RLE" pain. Pt transferred supine to sit EOB with modA. While sitting EOB challenged pt's dynamic sitting balance needed for increased I and enhanced safety. While weight shifting, crossing midline, and reaching over all planes pt was able to maintain F+ sitting balance throughout. Pt tolerated 9 minutes of sitting EOB and after aprox 5 minutes pt had complaints of "come and go phantom pains in his LLE." Pt then transferred back into bed sit to supine with maxA X 2. There he was left with heel protector on R foot, tray table in place, bed alarm on for safety, and call light in hand. Continue with rec D/C plan to SNF. WAYNE Hoover/Morris
--- NOTE | 2018-11-27 10:57 | NUR ---
COMPUTED TOMOGRAPHY SCANNER OPERATOR spoke with LISA Finnegan about discharge. COMPUTED TOMOGRAPHY SCANNER OPERATOR spoke with [facility] Kern who stated their facility would be able to transport the patient back to them between 3pm-4pm. COMPUTED TOMOGRAPHY SCANNER OPERATOR notified the RN. COMPUTED TOMOGRAPHY SCANNER OPERATOR attempted to reach out to next of kin, patient brother. Line rang busy the first try, and line rang to a fax the second time. -TRELL Dobbins
[2018-11-27 12:00] VITALS: BP 142/80
--- NOTE | 2018-11-27 13:05 | NUR ---
PRODUCT SAFETY ENGINEER attempted to reach out to Daughter Wprnd-[phone], number is disconnected. PRODUCT SAFETY ENGINEER attempted to reach out to Brother Mary at a different number, , no voicemail is set up. -TRELL Dobbins
--- NOTE | 2018-11-27 13:22 | NUR ---
CRYPTOGRAPHER spoke with the patient about not being able to contact family to notify them of his discharge. Patient stated he was not sure of his daughters number but thought it could be [phone], this number is disconnected as well. CRYPTOGRAPHER attempted [phone] again, it is disconnected. CRYPTOGRAPHER attempted brother Mary at [phone], straight to voicemail which has not been set up. CRYPTOGRAPHER reached out to Yajaira at [facility], only number she as for a contact is daughters [phone]. -TRELL Dobbins
--- NOTE | 2018-11-27 13:42 | NUR ---
LITIGATION SPECIALIST faxed discharge orders to [facility]. -TRELL Dobbins
--- NOTE | 2018-11-27 14:40 | NUR ---
MEDICATED WITH PO OXY ORDERED PER PT REQUEST FOR C/O PAIN "ALL OVER" RATED 8/10.
--- NOTE | 2018-11-27 15:00 | NUR ---
REPORT CALLED TO DOLORES FLOREZ, QUESTIONS ANSWERED.
--- NOTE | 2018-11-27 15:30 | NUR ---
MEDICATION EFFECTIVE FOR PAIN SOMEWHAT.
--- NOTE | 2018-11-27 15:45 | NUR ---
LEAVING VIA WHEEELCHAIR IN CARE OF [facility] ST[facility].
--- NOTE | 2018-11-28 07:55 | NUR ---
OT MARE I APPROVE OF THE NOTES WRITTEN ABOVE. THANK YOU. EUGENIO ASENCIO, OTR/L
--- NOTE | 2018-11-28 07:57 | NUR ---
PHYSICAL THERAPY CO-SIGN I approve of the Physical Therapy notes written above. DANIEL SHINE PT,DPT
[2018-12-04] MEDS ORDERED: OXYCODONE HCL10 M1 PO (13:28)
[2018-12-14] MEDS ORDERED: MIRCERA100 MCG/0. IV (10:27)
== END 2018-11-27 17:43 | disposition other institution (70) | DRG 871 ==
LOC: ED 07:42 → EDHOLD 08:58 → 5E 08:58
PROVIDERS: Emergency Medicine; Family Medicine; Student in an Organized Health Care Education/Training Program; ADMIT Internal Medicine
PROC: 5A1D70Z Performance of Urinary Filtration, Intermittent, Less than 6 Hours Per Day (ICD-10-PCS; 2018-11-23)
PROC: 5A1D70Z Performance of Urinary Filtration, Intermittent, Less than 6 Hours Per Day (ICD-10-PCS; principal; 2018-11-24)
PROC: 5A1D70Z Performance of Urinary Filtration, Intermittent, Less than 6 Hours Per Day (ICD-10-PCS; 2018-11-26)
DX: A41.9 Sepsis, unspecified organism (principal); N18.6 End stage renal disease; J18.9 Pneumonia, unspecified organism; E43 Unspecified severe protein-calorie malnutrition; J44.1 Chronic obstructive pulmonary disease with (acute) exacerbation; J44.0 Chronic obstructive pulmonary disease with (acute) lower respiratory infection; E11.52 Type 2 diabetes mellitus with diabetic peripheral angiopathy with gangrene; E87.1 Hypo-osmolality and hyponatremia; I13.2 Hypertensive heart and chronic kidney disease with heart failure and with stage 5 chronic kidney disease, or end stage renal disease; E11.65 Type 2 diabetes mellitus with hyperglycemia; D53.9 Nutritional anemia, unspecified; I87.2 Venous insufficiency (chronic) (peripheral); M79.2 Neuralgia and neuritis, unspecified; Z66 Do not resuscitate; Z51.5 Encounter for palliative care; E87.8 Other disorders of electrolyte and fluid balance, not elsewhere classified; E11.22 Type 2 diabetes mellitus with diabetic chronic kidney disease; I99.8 Other disorder of circulatory system; E66.01 Morbid (severe) obesity due to excess calories; G47.33 Obstructive sleep apnea (adult) (pediatric); M48.00 Spinal stenosis, site unspecified; I50.812 Chronic right heart failure; I48.2 Chronic atrial fibrillation; E83.39 Other disorders of phosphorus metabolism; D63.8 Anemia in other chronic diseases classified elsewhere; E83.41 Hypermagnesemia; Z79.4 Long term (current) use of insulin; Z99.2 Dependence on renal dialysis; Z79.01 Long term (current) use of anticoagulants; Z88.8 Allergy status to other drugs, medicaments and biological substances; Z88.6 Allergy status to analgesic agent; I25.2 Old myocardial infarction; Z86.711 Personal history of pulmonary embolism; Z89.432 Acquired absence of left foot; Z82.49 Family history of ischemic heart disease and other diseases of the circulatory system; Z79.899 Other long term (current) drug therapy; Z79.02 Long term (current) use of antithrombotics/antiplatelets; Z87.891 Personal history of nicotine dependence; Z68.36 Body mass index [BMI] 36.0-36.9, adult

== ENCOUNTER → 2018-12-04 | Day surgery (SDC) | payer MEDICARE ==
[~2018-12-04] MED LIST changes: +BASAG SOL SC; +CALCIUM ACETAT667 M2 PO; +DIGOX125 MCG PO; +DOXYCYCLINE100 M3 PO; +DULCOLAX10 M1 R; +GLUCAGON EMERGEN1 M1 IM; +GLUTOSE 1537.5 GM PO; +LACTULOSE20 GM/30 M PO; +METOPROLOL TAR100 M1 PO; +MIDODRINE HCL10 MG PO; +MIRCERA100 MCG/0. IV; +MUCINEX ER600 MG PO; +PACERONE200 MG PO; +PACERONE400 MG PO; +SORE THROAT LO1 EAC1 MM; +TOPROL XL100 MG PO; +ZOCOR40 MG PO; +[UNRECOGNIZED DRUG - OTHER] PO
[2018-12-04 11:07] VITALS: BP 106/54
[2018-12-04 13:11] VITALS: BP 79/40
[2018-12-04 13:25] VITALS: BP 90/60
[2018-12-04 13:40] VITALS: BP 106/61
== END | disposition home or self-care (01) ==
LOC: SDC 11-29 09:30
DX: E10.52 Type 1 diabetes mellitus with diabetic peripheral angiopathy with gangrene (principal); E10.22 Type 1 diabetes mellitus with diabetic chronic kidney disease; I13.2 Hypertensive heart and chronic kidney disease with heart failure and with stage 5 chronic kidney disease, or end stage renal disease; N18.6 End stage renal disease; I50.9 Heart failure, unspecified; J44.9 Chronic obstructive pulmonary disease, unspecified; E78.00 Pure hypercholesterolemia, unspecified; F17.210 Nicotine dependence, cigarettes, uncomplicated; I25.2 Old myocardial infarction; F41.9 Anxiety disorder, unspecified; F32.9 Major depressive disorder, single episode, unspecified; Z89.512 Acquired absence of left leg below knee; Z99.2 Dependence on renal dialysis; Z89.421 Acquired absence of other right toe(s)

== ENCOUNTER 2018-12-19 06:37 | Inpatient (IN) | payer MEDICARE ==
[2018-12-19] VITALS (11 sets, daily range): BP systolic 90–108; BP diastolic 37–66
[~2018-12-19] VITALS: Ht 172.7 cm; Wt 95.3 kg
[~2018-12-19 06:37] MED LIST changes: -DOXYCYCLINE100 M3 PO; -GLUCAGON EMERGEN1 M1 IM; -GLUTOSE 1537.5 GM PO; -METOPROLOL TAR100 M1 PO; -MIDODRINE HCL10 MG PO; -MUCINEX ER600 MG PO; -PACERONE200 MG PO; -PACERONE400 MG PO; -[UNRECOGNIZED DRUG - OTHER] PO
--- NOTE | 2018-12-19 07:06 | NUR ---
REPORT FROM RACHELLE GONZALEZ AT THIS TIME.
[2018-12-19 07:18] LABS: BASO # 0.1 10*3/uL (0.0-0.1); BASO % 0.4 % (0.0-1.0); EOS # 0.1 10*3/uL (0.0-0.4); EOS % 1.2 % (1.0-4.0); HEMATOCRIT 33.6 % (42.0-52.0); LYMPH # 0.6 10*3/uL (1.3-4.4); LYMPH % 5.2 % (27.0-41.0); MEAN CELL VOLUME 97.7 fl (80.0-94.0); MEAN CORPUSCULAR HGB 29.1 pg (27.0-31.0); MEAN CORPUSCULAR HGB CONC 29.8 g/dl (33.0-37.0); MONO # 0.6 10*3/uL (0.1-1.0); MONO % 5.2 % (3.0-9.0); NEUT # 10.3 10*3/uL (2.3-7.9); NEUT % 87.7 % (47.0-73.0); PLATELET COUNT AUTOMATED 184 10*3/uL (130-400); RED BLOOD COUNT 3.44 10*6/uL (4.50-5.90); RED CELL DISTRI WIDTH 18.6 % (0-14.5); WHITE BLOOD COUNT 11.8 10*3/uL (4.8-10.8)
[2018-12-19 07:27] LABS: INTERNATIONAL NORM RATIO 1.1 (2.0-3.5)
[2018-12-19 07:34] LABS: ALBUMIN 2.5 gm/dl (3.1-4.5); CREATININE 4.9 mg/dL (0.70-1.30); POTASSIUM 4.6 mmol/L (3.5-5.1); TOTAL PROTEIN 7.1 gm/dL (6.4-8.2)
--- NOTE | 2018-12-19 07:34 | NUR ---
PATIENT HAS WOUND ON R FOOT 4TH DIGIT PER PATIENT. PATIENT STATES SURGERY WAS WHAT HE THINKS ON THE December. PATIENT FOOT IS STILL WRAPPED FROM SURGERY. WOUND DOCUMENTED THERE.
[2018-12-19 07:35] LABS: TROPONIN I 0.04 ng/ml (<0.045)
--- NOTE | 2018-12-19 08:20 | NUR ---
PATIENT PULSE OX AT 86% AT THIS TIME. 2L NC INTIATED ON PATIENT.
--- NOTE | 2018-12-19 09:47 | NUR ---
CALLED AND NOTIFIED NURSE OF PATIENT COMING TO FLOOR. NURSE NEEDED ADDITIONAL TIME. WILL TAKE PATIENT UP IN 5-10 MINUTES.
[2018-12-19] MEDS ORDERED: [UNRECOGNIZED DRUG - OTHER] PO (10:29)
--- NOTE | 2018-12-19 10:40 | NUR ---
BEDSIDE REPORT WAS GIVEN TO JASIEL GONZALEZ. ALSO THIS NURSES SBAR REPORT GIVEN TO HER. NO CHANGE IN PATIENT STATUS.
--- NOTE | 2018-12-19 10:41 | NUR ---
PATIENT WOUND ON R FOOT DRESSED TEMOPORARILY WITH TAGADERM FOR FURTHER ASSESSMENT BY DOCTOR ON ADMITTED FLOOR.
[2018-12-19] MEDS ORDERED: GLUTOSE 1537.5 GM PO (10:44)
[2018-12-19] MEDS ORDERED: GLUCAGON EMERGEN1 M1 IM (10:46)
[2018-12-19] MEDS ORDERED: METOPROLOL TAR100 M1 PO (10:50)
[2018-12-19] MEDS ORDERED: MIDODRINE HCL10 MG PO (10:51)
--- NOTE | 2018-12-19 12:26 | NUR ---
NOTIFIED RESIDENT DR NORMA PRUITT OF NEW CONSULT FOR DIALYSIS.
--- NOTE | 2018-12-19 12:36 | NUR ---
DR BLAIR'S OFFICE NOTIFIED OF NEW CONSULT FOR AFIB W/RVR.
--- NOTE | 2018-12-19 13:16 | NUR ---
IV started with #22 protective cath after 1 attempts. Site prepped with Chloroprep. Sterile dressing applied. Patient tolerated procedure well. LILLY LAMB
--- NOTE | 2018-12-19 13:55 | NUR ---
DR ROSARIO ROUNDED AND SEEN PT.ORDER RECIEVED TO D/C FLUIDS.
--- NOTE | 2018-12-19 14:42 | NUR ---
DR BLAIR ROUNDED AND SEEN PT WITH DR BOWENS. ORDERS RECIEVED.
--- NOTE | 2018-12-19 18:04 | NUR ---
NOTIFIED RUSLAN ANDREWS RN OF PT POSSIBLY TO BE DIALYZED IN AM, PER DR ROSARIO'S REQUEST.
--- NOTE | 2018-12-19 18:37 | NUR ---
CARDIZEM GTT D/C'D PER TITRATION ORDER. PT HR 77 AND HAS CONSISTENTLY BEEN 70-80 FOR LAST [address] PISANO.
--- NOTE | 2018-12-19 20:31 | NUR ---
PATIENT IS AAOX3 RESTING IN BED WITH EASY AND REGULAR RESPERS ON 2L O2 VIA NC. ASSESSMENT IS COMPLETE WITH NO S/S OF DISTRESS NOTED AT THIS TIME. PATIENT C/O PAIN TO BACK, LEG, AND RIGHT FOOT AT THIS TIME. BED IS LOW, LOCKED, AND CALL LIGHT IS WITHIN REACH. WILL CONTINUE TO MONITOR SEE SHIFT ASSESSMENT.
--- NOTE | 2018-12-19 21:40 | NUR ---
PRN NORCO GIVEN FOR GENERALZIED PAIN PER PATIENT RATING A 7/10. CALL LIGHT IS WITHIN REACH, WILL MONITOR EFFECT.
--- NOTE | 2018-12-19 23:00 | NUR ---
PRN NORCO SEEMS EFFECTIVE, PATIENT IS SLEEPING WITH EASY AND REGULAR RESPERS ON 2L O2 VIA NC. CALL LIGHT IS WITHIN REACH.
[2018-12-20] VITALS: BP 102/50
[2018-12-20 04:00] VITALS: BP 104/66
--- NOTE | 2018-12-20 04:47 | NUR ---
24 HR. CHART CHECK COMPLETE.
--- NOTE | 2018-12-20 05:21 | NUR ---
PATIENT AWAKENES EASILY FOR ADMINISTRATION OF AM MEDICATIONS AND WOUND DRESSING CHANGE/ASSESSMENT. PRN NORCO GIVEN AT THIS TIME. BED IS LOW, LOCKED, AND CALL LIGHT IS WITHIN REACH. WILL MONITOR EFFECT OF MEDICATION.
--- NOTE | 2018-12-20 05:26 | NUR ---
IKE TRUJILLO [id number] Please refer to the physician's history and physical for past medical history, comorbid conditions, and allergies. Diagnosis: ACUTE RESPIRATORY FAILURE WITH HYPOXIA, PNEUMONIA Wenceslao Score: 16,AT RISK WOUND DESCRIPTIONS: Wound Number: 1 Location of the wound: Right dorsal aspect of foot Type of wound: surgical Thickness: Full Size: 1.5cm x 1.5cm x 1.8cm Tunneling: none Undermining: none Sinus Tract: none Presence of Exudate: Serosanguineous Amount: Moderate Color: Red, yellow, brown Odor: Foul Periwound Skin Appearance: Erythema Wound edges: approximated Pain (associated with wound): tender to touch How does patient state this happened? pt stated he had surgery last week Surface the patient is resting on: Isoflex SKIN PREVENTION RECOMMENDATION: 1. Pressure redistribution support surface as appropriate 2. Elevate heels 3. Remove boots/TEDS every shift and reapply 4. Head of bed 30 degrees as tolerated 5. Assess nutrition and hydration 6. Manage moisture 7. Avoid the use of containment devices while in bed 8. Use absorptive products on surfaces limit layers of linens on bed 9. Turn and reposition every 1-2 hours in bed and every 1 hour in chair as tolerated 10. Weight shifts every 15 minutes while up in chair 11. Offloading with pillows or device to keep heels elevated off bed 12. Monitor skin at least every shift 13. Inspect under medical devices twice a day WOUND TREATMENT RECOMMENDATIONS: Full thickness guidelines: Cleanse right dorsal aspect of foot with nss and apply sureprep around the wound lightly pack with maxorb rope daily and prn for soiling. [facility]. Heel raiser pro boots while in bed.
--- NOTE | 2018-12-20 05:32 | NUR ---
Upon discharge recommend patient to follow up for wound care in outpatient setting continue current wound care orders at discharging facility.
[2018-12-20 07:05] LABS: BASO # 0.1 10*3/uL (0.0-0.1); BASO % 0.7 % (0.0-1.0); EOS # 0.3 10*3/uL (0.0-0.4); EOS % 3.4 % (1.0-4.0); HEMATOCRIT 32.3 % (42.0-52.0); HEMOGLOBIN 9.6 g/dl (14.0-18.0); LYMPH # 1.1 10*3/uL (1.3-4.4); LYMPH % 12.5 % (27.0-41.0); MEAN CORPUSCULAR HGB CONC 29.7 g/dl (33.0-37.0); MEAN PLATELET VOLUME 9.6 fl (9.6-12.3); MONO # 0.5 10*3/uL (0.1-1.0); MONO % 5.5 % (3.0-9.0); NEUT # 6.8 10*3/uL (2.3-7.9); NEUT % 77.3 % (47.0-73.0); PLATELET COUNT AUTOMATED 171 10*3/uL (130-400); RED BLOOD COUNT 3.43 10*6/uL (4.50-5.90); RED CELL DISTRI WIDTH 18.5 % (0-14.5); WHITE BLOOD COUNT 8.8 10*3/uL (4.8-10.8)
[2018-12-20 07:06] LABS: MEAN CELL VOLUME 94.2 fl (80.0-94.0)
[2018-12-20 07:21] LABS: CREATININE 5.59 mg/dL (0.70-1.30); PHOSPHOROUS 8.2 mg/dL (2.5-4.9); POTASSIUM 5.3 mmol/L (3.5-5.1)
--- NOTE | 2018-12-20 07:35 | NUR ---
PT TRANSPORTED VIA BED TO [facility] FOR HEMODIALYSIS.REPORT GIVEN TO LISA.
[2018-12-20 08:00] VITALS: BP 110/66
--- NOTE | 2018-12-20 10:02 | NUR ---
Dr. Bui notified of wound care recommendations.
--- NOTE | 2018-12-20 11:00 | NUR ---
Patient not available for Occupational Therapy evaluation as he is in dialysis. Jessica De Leon OTR/l
--- NOTE | 2018-12-20 11:06 | NUR ---
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
--- NOTE | 2018-12-20 11:43 | NUR ---
AEROSOL TREATMENT NOT GIVEN PT IN DIALYSIS
[2018-12-20 12:50] VITALS: BP 104/66
--- NOTE | 2018-12-20 12:50 | NUR ---
PT RETURNED FROM DIALYSIS. REPORT RECIEVED. PT HAD 2.5 KILOS OFF. VITALS OBTAINED.SPO2 98% ON 2LNC.VOICES NO NEEDS AT THIS TIME. PT SITTING UP IN BED ORDERING LUNCH.PT TOLERATED DIALYSIS WELL.CALL LIGHT IN REACH.
--- NOTE | 2018-12-20 14:00 | NUR ---
PHYSICAL THERAPY Physical therapy evaluation attempted however Pt refused. Pt also had dialysis today and appears fatigued. Will attempt later. Thank you Mady Bingham, PT, DPT
--- NOTE | 2018-12-20 14:02 | NUR ---
Patient just returning from dialysis and declines Occupational Therapy evaluation this date. Patient agreeable to OTR return tomorrow. Jessica De Leon OTR/L
--- NOTE | 2018-12-20 14:23 | NUR ---
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 [facility] -TRELL Dobbins
[2018-12-20 16:00] VITALS: BP 125/76
--- NOTE | 2018-12-20 19:49 | NUR ---
PT REFUSED AEROSOL TREATMENT AT THIS TIME.
[2018-12-20 20:00] VITALS: BP 110/69
[2018-12-21] VITALS: BP 98/55
--- NOTE | 2018-12-21 07:25 | NUR ---
ARRIVED ON SHIFT, INTRODUCED TO PATIENT, BEDSIDE REPORT RECEIVED, NO NEEDS VOICED AT THIS TIME. WHITE BOARD UPDATED.
--- NOTE | 2018-12-21 07:56 | NUR ---
Shift chart check completed.
[2018-12-21 08:00] VITALS: BP 98/60
[2018-12-21 09:00] LABS: BASO # 0.1 10*3/uL (0.0-0.1); BASO % 0.7 % (0.0-1.0); EOS # 0.3 10*3/uL (0.0-0.4); EOS % 3.7 % (1.0-4.0); HEMATOCRIT 32.2 % (42.0-52.0); HEMOGLOBIN 9.8 g/dl (14.0-18.0); LYMPH # 0.8 10*3/uL (1.3-4.4); LYMPH % 11.1 % (27.0-41.0); MEAN CELL VOLUME 96.1 fl (80.0-94.0); MEAN CORPUSCULAR HGB 29.3 pg (27.0-31.0); MEAN CORPUSCULAR HGB CONC 30.4 g/dl (33.0-37.0); MEAN PLATELET VOLUME 9.6 fl (9.6-12.3); MONO # 0.5 10*3/uL (0.1-1.0); MONO % 6.9 % (3.0-9.0); NEUT # 5.7 10*3/uL (2.3-7.9); NEUT % 77.2 % (47.0-73.0); PLATELET COUNT AUTOMATED 148 10*3/uL (130-400); RED BLOOD COUNT 3.35 10*6/uL (4.50-5.90); RED CELL DISTRI WIDTH 18.6 % (0-14.5); WHITE BLOOD COUNT 7.4 10*3/uL (4.8-10.8)
--- NOTE | 2018-12-21 09:00 | NUR ---
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
[2018-12-21 09:13] LABS: ALBUMIN 2.2 gm/dl (3.1-4.5); CREATININE 4.18 mg/dL (0.70-1.30); PHOSPHOROUS 6.5 mg/dL (2.5-4.9); POTASSIUM 4.7 mmol/L (3.5-5.1); TOTAL PROTEIN 6.6 gm/dL (6.4-8.2)
--- NOTE | 2018-12-21 10:52 | NUR ---
PT. UNAVAILABLE, OFF FLOOR
--- NOTE | 2018-12-21 11:00 | NUR ---
Nutritional Support Services Note: Renal diet papers left for pt. Pt was not available. Will follow up if needed. Adelina Juárez Rdn Ld
--- NOTE | 2018-12-21 11:23 | NUR ---
PHYSICAL THERAPY Physical therapy evaluation attempted however Pt in dialysis. Will attempt later. Thank you Mady Bingham, PT, DPT
--- NOTE | 2018-12-21 11:23 | NUR ---
PHYSICAL THERAPY Physical therapy evaluation attempted however Pt in dialysis. Will attempt at a later time. Thank you Mady Bingham, PT, DPT
--- NOTE | 2018-12-21 13:14 | NUR ---
Patient not available for Occupational Therapy as he is out of his room receiving dialysis. OTR will recheck at a later date. Jessica De Leon OTR/L
--- NOTE | 2018-12-21 14:08 | NUR ---
Patient just being returned to his room after dialysis. Jessica De Leon OTR/L
--- NOTE | 2018-12-21 14:56 | NUR ---
Patient not available as he with nursing. Jessica De Leon OTR/L
--- NOTE | 2018-12-21 14:56 | NUR ---
PHYSICAL THERAPY Physical therapy evaluation attempted however Pt with nursing. Attempted twice. Will attempt again later. Thank you Mady Bingham, PT, DPT
--- NOTE | 2018-12-21 14:58 | NUR ---
PATIENT C/O RIGHT LEG AND BACK PAIN 09/12, DESCRIBES ACHING MEDICATED WITH NORCO ORDERED.
--- NOTE | 2018-12-21 15:58 | NUR ---
PATIENT REPORTS NO PAIN AT THIS TIME, TOLERATED TRANSFER TO CART WELL.
[2018-12-21 20:00] VITALS: BP 122/72
--- NOTE | 2018-12-21 22:09 | NUR ---
NORCO GIVEN FOR COMPLAINT OF 8 OUT OF 10 BACK PAIN. WILL CONTINUE TO MONITOR AND REASSESS.
--- NOTE | 2018-12-21 22:43 | NUR ---
DR. MELGAR NOTIFIED OF ELEVATED HR. GAVE PO LOPRESSOR AND WILL CALL BACK WITH RESULTS IN 30 MIN PER HER REQUEST.
--- NOTE | 2018-12-21 23:21 | NUR ---
PT HR 98-[address] MELGAR NOTIFIED. ORDERED TO CALL IF PT HR 120 OR HIGHER, OR PT BECOMES SYMPTOMATIC. WILL CONTINUE TO MONITOR
[2018-12-22] VITALS: BP 124/86
--- NOTE | 2018-12-22 | NUR ---
NORCO APPEARS EFFECTIVE, PT SLEEPING AT THIS TIME.
--- NOTE | 2018-12-22 00:53 | NUR ---
PT TAKEN OFF BIPAP PER REQUEST. RESPIRATORY NOTIFIED.
--- NOTE | 2018-12-22 02:14 | NUR ---
PT HEART RATE 90'S LOW 100'S PER CM. PT DENIES FEELING SOB AT THIS TIME. STATES "I FEEL FINE" CALL LIGHT IN REACH.
[2018-12-22 06:43] LABS: BASO # 0.1 10*3/uL (0.0-0.1); BASO % 0.9 % (0.0-1.0); EOS # 0.2 10*3/uL (0.0-0.4); EOS % 2.8 % (1.0-4.0); HEMATOCRIT 32.3 % (42.0-52.0); HEMOGLOBIN 9.6 g/dl (14.0-18.0); LYMPH % 12.8 % (27.0-41.0); MEAN CELL VOLUME 96.7 fl (80.0-94.0); MEAN CORPUSCULAR HGB 28.7 pg (27.0-31.0); MEAN CORPUSCULAR HGB CONC 29.7 g/dl (33.0-37.0); MEAN PLATELET VOLUME 9.8 fl (9.6-12.3); MONO # 0.4 10*3/uL (0.1-1.0); MONO % 5.8 % (3.0-9.0); NEUT # 5.7 10*3/uL (2.3-7.9); NEUT % 77.2 % (47.0-73.0); PLATELET COUNT AUTOMATED 145 10*3/uL (130-400); RED BLOOD COUNT 3.34 10*6/uL (4.50-5.90); RED CELL DISTRI WIDTH 18.6 % (0-14.5); WHITE BLOOD COUNT 7.4 10*3/uL (4.8-10.8)
[2018-12-22 07:08] LABS: CREATININE 3.02 mg/dL (0.70-1.30); POTASSIUM 4.2 mmol/L (3.5-5.1)
--- NOTE | 2018-12-22 07:25 | NUR ---
ARRIVED ON SHIFT, INTRODUCED TO PATIENT, BEDSIDE REPORT RECEIVED, WHITE BOARD UPDATED, NO NEEDS VOICED AT THIS TIME, WHITE BOARD UPDATED.
--- NOTE | 2018-12-22 07:50 | NUR ---
Shift chart check completed.
[2018-12-22 08:00] VITALS: BP 112/58
--- NOTE | 2018-12-22 10:28 | NUR ---
PATIENT C/O OF FOOT, BACK AND LEG PAIN, HE DESCRIBES ACHING PAIN AND RATES 9/10 MEDICATED WITH NORCO ORDERED.
[2018-12-22 12:00] VITALS: BP 113/65
[2018-12-22 16:00] VITALS: BP 127/80
[2018-12-22 20:00] VITALS: BP 112/85
--- NOTE | 2018-12-22 20:00 | NUR ---
PT IS AWAKE AND SITITNG UP IN BED AT THIS TIME. HE STATES THAT HE IS EXPERIENCING SOME PAIN AT THIS TIME. EDUCATION PROVIDED REGARDING PRN PAIN MEDICATIONS. NO OTHER COMPLAINTS VOICED. RESPS ARE EASY AND NONLABORED. DRESSING TO RIGHT FOOT IS CLEAN, DRY AND INTACT. BED IS LOW, CALL LIGHT WITHIN REACH. WILL CONTINUE TO MONITOR CLOSELY.
--- NOTE | 2018-12-22 20:25 | NUR ---
PT MEDICATED WITH PRN NORCO FOR COMPLAINT OF RIGHT LEG PAIN RATED A 9/10. WILL MONITOR FOR EFFECTIVENESS.
--- NOTE | 2018-12-22 20:47 | NUR ---
24 HR CHART CHECK COMPLETE.
--- NOTE | 2018-12-22 21:15 | NUR ---
PT ASLEEP AT THIS TIME. NO S/S OF DISTRESS NOTED. PRN NORCO EFFECTIVE.
[2018-12-23] VITALS: BP 112/82
--- NOTE | 2018-12-23 00:42 | NUR ---
PT MEDICATED WITH PRN NORCO FOR C/O PAIN RATED AN 8/10. WILL MONITOR FOR EFFECTIVENESS.
--- NOTE | 2018-12-23 07:25 | NUR ---
ARRIVED ON SHIFT, INTRODUCED TO PATIENT, BEDSIDE REPORT RECEIVED, WHITE BOARD UPDATED, NO NEEDS VOICED AT THIS TIME.
[2018-12-23 07:40] LABS: BASO # 0.1 10*3/uL (0.0-0.1); EOS # 0.3 10*3/uL (0.0-0.4); EOS % 3.7 % (1.0-4.0); LYMPH # 1.1 10*3/uL (1.3-4.4); LYMPH % 13.7 % (27.0-41.0); MEAN CELL VOLUME 95.5 fl (80.0-94.0); MEAN CORPUSCULAR HGB 28.1 pg (27.0-31.0); MEAN CORPUSCULAR HGB CONC 29.4 g/dl (33.0-37.0); MEAN PLATELET VOLUME 9.7 fl (9.6-12.3); MONO # 0.6 10*3/uL (0.1-1.0); MONO % 6.8 % (3.0-9.0); NEUT % 74.1 % (47.0-73.0); PLATELET COUNT AUTOMATED 121 10*3/uL (130-400); RED BLOOD COUNT 3.56 10*6/uL (4.50-5.90); RED CELL DISTRI WIDTH 18.4 % (0-14.5); WHITE BLOOD COUNT 8.1 10*3/uL (4.8-10.8)
[2018-12-23 07:43] VITALS: BP 110/70
--- NOTE | 2018-12-23 08:00 | NUR ---
Shift chart check completed.
[2018-12-23 08:11] LABS: POTASSIUM 4.9 mmol/L (3.5-5.1)
[2018-12-23 08:17] LABS: CREATININE 4.1 mg/dL (0.70-1.30)
--- NOTE | 2018-12-23 10:57 | NUR ---
CALL PLACED TO DR. LLAMAS PER DR. COHEN REQUEST REGARDING PATIENTS DIGOXIN, REVIEWED PATIENTS LABS WITH DR. LLAMAS, HE ADVISED HE WILL BE IN ABOUT 1/2 HOUR, SPOKE WITH DR. MCCLURE TO ADVISE, HE VERSED HE WILL TALK TO DR. LLAMAS WHEN HE GETS HERE.
--- NOTE | 2018-12-23 11:57 | NUR ---
PHYSICAL THERAPY Progress note: Pt was seen for evaluation while on 4th floor, moderate complexity determined. Refer to evaluation form for full details with recommendation for skilled care and prosthetic consult. Thank you for this referral. Abi Chavira, PT
[2018-12-23 12:00] VITALS: BP 126/70
[2018-12-23] MEDS ORDERED: DOXYCYCLINE100 M3 PO (13:35)
[2018-12-23] MEDS ORDERED: PACERONE200 MG PO (13:35)
[2018-12-23] MEDS ORDERED: PACERONE400 MG PO (13:35)
[2018-12-23] MEDS ORDERED: OXYCODONE HCL10 M1 PO (13:35)
[2018-12-23] MEDS ORDERED: MUCINEX ER600 MG PO (13:35)
--- NOTE | 2018-12-23 13:51 | NUR ---
PATIENT C/O PAIN 10/10 RIGHT GREAT TOE MEDICATED WITH OXYCODONE ORSERED.
--- NOTE | 2018-12-23 14:13 | NUR ---
Discharge instructions reviewed with ELROY GONZALEZ, AT [facility] VIS TELEPHONE. NURSE receptive and VERBALIZES UNDERSTANDING. WRITTEN INSTRUCTIONS GIVEN TO INDUSTRIAL PHOTOGRAPHER, IV REMOVED, MONITOR ACCOUNTED FOR. LEFT VIS LIFE [facility] AMBULENCE. MITCHELL THOMAS
--- NOTE | 2018-12-23 14:49 | NUR ---
RECEIVED CALL FROM LAB AFTER PATIENTS DISCHARGE ADVISED OF CRITICAL LAB OF [facility] OF 34.7 CALL PLACED TO [facility] SPOKE WITH ELROY GONZALEZ ADVISED OF LAB, SHE STATED THAT IT IS GIVEN AT DIALYSIS AND SHE WILL LET THEM KNOW.
== END 2018-12-23 14:13 | disposition other institution (70) | DRG 871 ==
LOC: ED 06:37 → 4E 08:50 → EDHOLD 08:50 → 4E 09:48
PROVIDERS: Emergency Medicine; Internal Medicine; Student in an Organized Health Care Education/Training Program; ADMIT Internal Medicine
PROC: 5A1D70Z Performance of Urinary Filtration, Intermittent, Less than 6 Hours Per Day (ICD-10-PCS; principal; 2018-12-20)
DX: A41.9 Sepsis, unspecified organism (principal); J96.01 Acute respiratory failure with hypoxia; N18.6 End stage renal disease; E43 Unspecified severe protein-calorie malnutrition; J18.1 Lobar pneumonia, unspecified organism; E87.1 Hypo-osmolality and hyponatremia; E87.0 Hyperosmolality and hypernatremia; J44.0 Chronic obstructive pulmonary disease with (acute) lower respiratory infection; I50.20 Unspecified systolic (congestive) heart failure; I13.2 Hypertensive heart and chronic kidney disease with heart failure and with stage 5 chronic kidney disease, or end stage renal disease; E11.65 Type 2 diabetes mellitus with hyperglycemia; I48.91 Unspecified atrial fibrillation; G47.33 Obstructive sleep apnea (adult) (pediatric); E66.9 Obesity, unspecified; D53.9 Nutritional anemia, unspecified; Z66 Do not resuscitate; Z51.5 Encounter for palliative care; E87.8 Other disorders of electrolyte and fluid balance, not elsewhere classified; E11.22 Type 2 diabetes mellitus with diabetic chronic kidney disease; E11.51 Type 2 diabetes mellitus with diabetic peripheral angiopathy without gangrene; E86.1 Hypovolemia; I25.2 Old myocardial infarction; Z99.81 Dependence on supplemental oxygen; Z99.2 Dependence on renal dialysis; Z82.49 Family history of ischemic heart disease and other diseases of the circulatory system; S91.301D Unspecified open wound, right foot, subsequent encounter; Z88.8 Allergy status to other drugs, medicaments and biological substances; Z68.30 Body mass index [BMI] 30.0-30.9, adult

== ENCOUNTER → 2019-02-07 | Outpatient (CLI) | payer MEDICARE ==
[~2019-02-07] MED LIST changes: +DOXYCYCLINE100 M3 PO; +GLUCAGON EMERGEN1 M1 IM; +GLUTOSE 1537.5 GM PO; +METOPROLOL TAR100 M1 PO; +MIDODRINE HCL10 MG PO; +MUCINEX ER600 MG PO; +PACERONE200 MG PO; +PACERONE400 MG PO; +[UNRECOGNIZED DRUG - OTHER] PO
== END | disposition home or self-care (01) ==
LOC: CT 01-29 08:00
DX: J43.9 Emphysema, unspecified (principal); I71.2 Thoracic aortic aneurysm, without rupture; N28.1 Cyst of kidney, acquired

== ENCOUNTER 2019-03-31 03:12 | Inpatient (IN) | payer MEDICARE, MEDICAID ==
[2019-03-31] VITALS (9 sets, daily range): BP systolic 89–118; BP diastolic 48–69
[~2019-03-31] VITALS: Ht 177.8 cm; Wt 97.7 kg
[2019-03-31 03:27] LABS: ARTERIAL BLOOD GAS PH 7.209 (7.35-7.45)
[2019-03-31 03:53] LABS: HEMATOCRIT 29.4 % (42.0-52.0); HEMOGLOBIN 8.4 g/dl (14.0-18.0); MEAN CORPUSCULAR HGB 27.7 pg (27.0-31.0); MEAN CORPUSCULAR HGB CONC 28.6 g/dl (33.0-37.0); MEAN PLATELET VOLUME 9.8 fl (9.6-12.3); NUCLEATED RED BLOOD CELL 0.1 10*3/uL (0.0-0.0); NUCLEATED RED BLOOD CELL 1.1 % (0.0-0.0); PLATELET COUNT AUTOMATED 196 10*3/uL (130-400); RED BLOOD COUNT 3.03 10*6/uL (4.50-5.90); RED CELL DISTRI WIDTH 20.2 % (0-14.5); WHITE BLOOD COUNT 12.3 10*3/uL (4.8-10.8)
[2019-03-31 04:05] LABS: ACT PARTIAL THROMBO TIME 40.7 SECONDS (20.0-32.1)
[2019-03-31 04:14] LABS: BURR CELLS FEW; TOTAL CELLS COUNTED 100 #CELLS
[2019-03-31 04:15] LABS: ALBUMIN 2.3 gm/dl (3.1-4.5); CREATININE 5.73 mg/dL (0.70-1.30); OVALOCYTES FEW; PLATELET SUFFICIENCY NORMAL (NORMAL); TOTAL PROTEIN 8.1 gm/dL (6.4-8.2)
[2019-03-31 04:18] LABS: POTASSIUM 5.1 mmol/L (3.5-5.1)
[2019-03-31 04:20] LABS: TROPONIN I 1.5 ng/ml (<0.045); TROPONIN I 1.53 ng/ml (<0.045)
[2019-03-31] MEDS ORDERED: BASAG SOL SQ (06:13)
[2019-03-31] MEDS ORDERED: CEPACOL SORE T1 EACH PO (06:15)
[2019-03-31] MEDS ORDERED: NOVOLOG100 UNIT/1 SQ (06:21)
[2019-03-31] MEDS ORDERED: OXYCODONE HCL10 M1 PO (06:21)
[2019-03-31] MEDS ORDERED: PLAVIX75 M1 PO (06:22)
[2019-03-31] MEDS ORDERED: RENA-VITE RX T1 EACH PO (06:22)
[2019-03-31 07:30] LABS: ARTERIAL BLOOD GAS PH 7.227 (7.35-7.45)
[2019-03-31 07:31] LABS: ABG BASE EXCESS -5.8 mmol/L (-2.0-2.0)
[2019-04-01] VITALS (58 sets, daily range): BP systolic 71–237; BP diastolic 0–157
[2019-04-01 06:43] LABS: BASO # 0.1 10*3/uL (0.0-0.1); BASO % 0.6 % (0.0-1.0); EOS # 0.3 10*3/uL (0.0-0.4); EOS % 1.8 % (1.0-4.0); HEMOGLOBIN 8.3 g/dl (14.0-18.0); LYMPH # 1.2 10*3/uL (1.3-4.4); LYMPH % 8.6 % (27.0-41.0); MEAN CELL VOLUME 98.3 fl (80.0-94.0); MEAN CORPUSCULAR HGB 28.1 pg (27.0-31.0); MEAN CORPUSCULAR HGB CONC 28.6 g/dl (33.0-37.0); MEAN PLATELET VOLUME 9.5 fl (9.6-12.3); MONO # 0.7 10*3/uL (0.1-1.0); MONO % 4.7 % (3.0-9.0); NEUT # 11.9 10*3/uL (2.3-7.9); NEUT % 83.5 % (47.0-73.0); NUCLEATED RED BLOOD CELL 0.1 10*3/uL (0.0-0.0); NUCLEATED RED BLOOD CELL 0.5 % (0.0-0.0); PLATELET COUNT AUTOMATED 159 10*3/uL (130-400); RED BLOOD COUNT 2.95 10*6/uL (4.50-5.90); RED CELL DISTRI WIDTH 20.7 % (0-14.5); WHITE BLOOD COUNT 14.3 10*3/uL (4.8-10.8)
[2019-04-01 06:48] LABS: ACT PARTIAL THROMBO TIME 70.6 SECONDS (20.0-32.1); INTERNATIONAL NORM RATIO 1.5 (2.0-3.5)
[2019-04-01 06:53] LABS: ALBUMIN 2.2 gm/dl (3.1-4.5); CREATININE 6.39 mg/dL (0.70-1.30); TOTAL PROTEIN 7.8 gm/dL (6.4-8.2)
[2019-04-01 07:01] LABS: THYROID STIM HORMONE (HS) 6.96 uIU/ml (0.358-4.75)
[2019-04-01 07:06] LABS: PHOSPHOROUS 10.7 mg/dL (2.5-4.9)
[2019-04-02] VITALS (96 sets, daily range): BP systolic 73–109; BP diastolic 38–78
[2019-04-02 05:40] LABS: BASO # 0.1 10*3/uL (0.0-0.1); BASO % 0.4 % (0.0-1.0); EOS # 0.2 10*3/uL (0.0-0.4); EOS % 0.9 % (1.0-4.0); HEMATOCRIT 28.9 % (42.0-52.0); HEMOGLOBIN 8.3 g/dl (14.0-18.0); LYMPH # 0.9 10*3/uL (1.3-4.4); MEAN CELL VOLUME 97.6 fl (80.0-94.0); MEAN CORPUSCULAR HGB CONC 28.7 g/dl (33.0-37.0); MEAN PLATELET VOLUME 9.8 fl (9.6-12.3); MONO # 0.8 10*3/uL (0.1-1.0); MONO % 4.7 % (3.0-9.0); NEUT # 15.3 10*3/uL (2.3-7.9); NEUT % 88.3 % (47.0-73.0); NUCLEATED RED BLOOD CELL 0.1 10*3/uL (0.0-0.0); NUCLEATED RED BLOOD CELL 0.5 % (0.0-0.0); PLATELET COUNT AUTOMATED 174 10*3/uL (130-400); RED BLOOD COUNT 2.96 10*6/uL (4.50-5.90); WHITE BLOOD COUNT 17.3 10*3/uL (4.8-10.8)
[2019-04-02 05:43] LABS: ACT PARTIAL THROMBO TIME 73.1 SECONDS (20.0-32.1); INTERNATIONAL NORM RATIO 1.3 (2.0-3.5)
[2019-04-02 05:46] LABS: ALBUMIN 2.4 gm/dl (3.1-4.5); CREATININE 6.79 mg/dL (0.70-1.30); POTASSIUM 5.3 mmol/L (3.5-5.1)
[2019-04-02 06:38] LABS: PHOSPHOROUS 11.1 mg/dL (2.5-4.9)
[2019-04-02 16:55] LABS: ABG BASE EXCESS -3.8 mmol/L (-2.0-2.0); ARTERIAL BLOOD GAS PH 7.207 (7.35-7.45)
[2019-04-03] VITALS (96 sets, daily range): BP systolic 78–130; BP diastolic 30–76
[2019-04-03 06:07] LABS: ALBUMIN 2.2 gm/dl (3.1-4.5); CREATININE 5.62 mg/dL (0.70-1.30); POTASSIUM 4.7 mmol/L (3.5-5.1); TOTAL PROTEIN 7.8 gm/dL (6.4-8.2)
[2019-04-03 06:14] LABS: BASO # 0.1 10*3/uL (0.0-0.1); BASO % 0.5 % (0.0-1.0); EOS # 0.1 10*3/uL (0.0-0.4); EOS % 0.4 % (1.0-4.0); HEMATOCRIT 28.3 % (42.0-52.0); HEMOGLOBIN 8.1 g/dl (14.0-18.0); LYMPH # 0.7 10*3/uL (1.3-4.4); LYMPH % 4.3 % (27.0-41.0); MEAN CELL VOLUME 97.6 fl (80.0-94.0); MEAN CORPUSCULAR HGB 27.9 pg (27.0-31.0); MEAN CORPUSCULAR HGB CONC 28.6 g/dl (33.0-37.0); MEAN PLATELET VOLUME 9.5 fl (9.6-12.3); MONO # 0.7 10*3/uL (0.1-1.0); MONO % 4.4 % (3.0-9.0); NEUT # 14.3 10*3/uL (2.3-7.9); NEUT % 89.7 % (47.0-73.0); NUCLEATED RED BLOOD CELL 0.1 10*3/uL (0.0-0.0); NUCLEATED RED BLOOD CELL 0.4 % (0.0-0.0); PLATELET COUNT AUTOMATED 127 10*3/uL (130-400); RED CELL DISTRI WIDTH 21.2 % (0-14.5); WHITE BLOOD COUNT 15.9 10*3/uL (4.8-10.8)
[2019-04-03 06:35] LABS: PHOSPHOROUS 9.8 mg/dL (2.5-4.9)
[2019-04-04] VITALS (69 sets, daily range): BP systolic 83–123; BP diastolic 45–654
[2019-04-04 05:42] LABS: ALBUMIN 2.1 gm/dl (3.1-4.5); CREATININE 4.95 mg/dL (0.70-1.30); PHOSPHOROUS 7.7 mg/dL (2.5-4.9); POTASSIUM 4.1 mmol/L (3.5-5.1); TOTAL PROTEIN 7.7 gm/dL (6.4-8.2)
[2019-04-04 06:09] LABS: BASO # 0.1 10*3/uL (0.0-0.1); BASO % 0.5 % (0.0-1.0); EOS # 0.1 10*3/uL (0.0-0.4); EOS % 0.5 % (1.0-4.0); HEMATOCRIT 27.5 % (42.0-52.0); LYMPH # 0.6 10*3/uL (1.3-4.4); LYMPH % 4.8 % (27.0-41.0); MEAN CELL VOLUME 97.2 fl (80.0-94.0); MEAN CORPUSCULAR HGB 28.3 pg (27.0-31.0); MEAN CORPUSCULAR HGB CONC 29.1 g/dl (33.0-37.0); MEAN PLATELET VOLUME 9.5 fl (9.6-12.3); MONO # 0.8 10*3/uL (0.1-1.0); MONO % 6.3 % (3.0-9.0); NEUT # 10.6 10*3/uL (2.3-7.9); NEUT % 87.4 % (47.0-73.0); NUCLEATED RED BLOOD CELL 0.3 % (0.0-0.0); PLATELET COUNT AUTOMATED 108 10*3/uL (130-400); RED BLOOD COUNT 2.83 10*6/uL (4.50-5.90); WHITE BLOOD COUNT 12.1 10*3/uL (4.8-10.8)
[2019-04-04 07:28] LABS: ARTERIAL BLOOD GAS PH 7.249 (7.35-7.45)
[2019-04-04 07:30] LABS: ABG BASE EXCESS -5.2 mmol/L (-2.0-2.0)
== END 2019-04-04 17:42 | disposition hospice, home (50) | DRG 871 ==
LOC: ED 03:12 → EDHOLD 05:18 → ICCU 05:18
PROVIDERS: Emergency Medicine Emergency Medical Services; Internal Medicine; Internal Medicine Critical Care Medicine; Internal Medicine Nephrology; Student in an Organized Health Care Education/Training Program; ADMIT Internal Medicine
PROC: 5A09357 Assistance with Respiratory Ventilation, Less than 24 Consecutive Hours, Continuous Positive Airway Pressure (ICD-10-PCS; principal; 2019-03-31)
PROC: B548ZZA Ultrasonography of Superior Vena Cava, Guidance (ICD-10-PCS; 2019-04-01)
PROC: 5A09457 Assistance with Respiratory Ventilation, 24-96 Consecutive Hours, Continuous Positive Airway Pressure (ICD-10-PCS; 2019-04-01)
PROC: 02HV33Z Insertion of Infusion Device into Superior Vena Cava, Percutaneous Approach (ICD-10-PCS; 2019-04-01)
PROC: 5A1D70Z Performance of Urinary Filtration, Intermittent, Less than 6 Hours Per Day (ICD-10-PCS; 2019-04-01)
PROC: 5A09357 Assistance with Respiratory Ventilation, Less than 24 Consecutive Hours, Continuous Positive Airway Pressure (ICD-10-PCS; 2019-04-02)
PROC: 5A1D70Z Performance of Urinary Filtration, Intermittent, Less than 6 Hours Per Day (ICD-10-PCS; 2019-04-02)
PROC: 5A1D70Z Performance of Urinary Filtration, Intermittent, Less than 6 Hours Per Day (ICD-10-PCS; 2019-04-03)
PROC: 5A09357 Assistance with Respiratory Ventilation, Less than 24 Consecutive Hours, Continuous Positive Airway Pressure (ICD-10-PCS; 2019-04-03)
DX: A41.9 Sepsis, unspecified organism (principal); I21.4 Non-ST elevation (NSTEMI) myocardial infarction; I50.33 Acute on chronic diastolic (congestive) heart failure; G93.41 Metabolic encephalopathy; N18.6 End stage renal disease; E43 Unspecified severe protein-calorie malnutrition; J96.21 Acute and chronic respiratory failure with hypoxia; J96.22 Acute and chronic respiratory failure with hypercapnia; R65.21 Severe sepsis with septic shock; J15.212 Pneumonia due to Methicillin resistant Staphylococcus aureus; J44.1 Chronic obstructive pulmonary disease with (acute) exacerbation; E87.1 Hypo-osmolality and hyponatremia; M86.171 Other acute osteomyelitis, right ankle and foot; J44.0 Chronic obstructive pulmonary disease with (acute) lower respiratory infection; I13.2 Hypertensive heart and chronic kidney disease with heart failure and with stage 5 chronic kidney disease, or end stage renal disease; Z66 Do not resuscitate; Z51.5 Encounter for palliative care; E87.8 Other disorders of electrolyte and fluid balance, not elsewhere classified; E83.41 Hypermagnesemia; E83.39 Other disorders of phosphorus metabolism; E11.65 Type 2 diabetes mellitus with hyperglycemia; E11.51 Type 2 diabetes mellitus with diabetic peripheral angiopathy without gangrene; E11.22 Type 2 diabetes mellitus with diabetic chronic kidney disease; E11.69 Type 2 diabetes mellitus with other specified complication; G47.33 Obstructive sleep apnea (adult) (pediatric); M79.2 Neuralgia and neuritis, unspecified; M48.00 Spinal stenosis, site unspecified; E66.01 Morbid (severe) obesity due to excess calories; I48.0 Paroxysmal atrial fibrillation; G89.29 Other chronic pain; D53.9 Nutritional anemia, unspecified; I25.10 Atherosclerotic heart disease of native coronary artery without angina pectoris; I35.0 Nonrheumatic aortic (valve) stenosis; I07.1 Rheumatic tricuspid insufficiency; F17.200 Nicotine dependence, unspecified, uncomplicated; Z89.512 Acquired absence of left leg below knee; Z99.2 Dependence on renal dialysis; Z68.30 Body mass index [BMI] 30.0-30.9, adult; Z88.6 Allergy status to analgesic agent; Z88.8 Allergy status to other drugs, medicaments and biological substances; Z89.421 Acquired absence of other right toe(s); Z82.49 Family history of ischemic heart disease and other diseases of the circulatory system; Z79.4 Long term (current) use of insulin; Z79.899 Other long term (current) drug therapy; Z79.01 Long term (current) use of anticoagulants

== ENCOUNTER 2019-04-04 17:47 | Inpatient (IN) | payer OTHER, MEDICARE, MEDICAID ==
[~2019-04-04] VITALS: Ht 177.8 cm; Wt 97.5 kg
[~2019-04-04 17:47] MED LIST changes: +BASAG SOL SQ; +CEPACOL SORE T1 EACH PO; +NOVOLOG100 UNIT/1 SQ
[2019-04-04 18:00] VITALS: BP 97/42
[2019-04-04 18:53] VITALS: BP 85/59
[2019-04-04 20:00] VITALS: BP 87/62
[2019-04-05] VITALS: BP 87/60
[2019-04-05 08:00] VITALS: BP 93/64
[2019-04-05 12:00] VITALS: BP 92/60
[2019-04-05 16:00] VITALS: BP 80/53
[2019-04-05 20:00] VITALS: BP 93/57
[2019-04-06] VITALS: BP 92/55
== END 2019-04-06 10:25 | disposition expired | DRG 871 ==
LOC: 5E 17:47 → ICCU 17:47 → 5E 19:07
PROVIDERS: ADMIT Family Medicine
DX: A41.9 Sepsis, unspecified organism (principal); I21.4 Non-ST elevation (NSTEMI) myocardial infarction; J18.9 Pneumonia, unspecified organism; N18.6 End stage renal disease; J96.01 Acute respiratory failure with hypoxia; G93.41 Metabolic encephalopathy; J96.02 Acute respiratory failure with hypercapnia; I50.33 Acute on chronic diastolic (congestive) heart failure; E43 Unspecified severe protein-calorie malnutrition; M86.9 Osteomyelitis, unspecified; J44.1 Chronic obstructive pulmonary disease with (acute) exacerbation; E87.1 Hypo-osmolality and hyponatremia; J44.0 Chronic obstructive pulmonary disease with (acute) lower respiratory infection; I13.2 Hypertensive heart and chronic kidney disease with heart failure and with stage 5 chronic kidney disease, or end stage renal disease; Z51.5 Encounter for palliative care; Z66 Do not resuscitate; R65.20 Severe sepsis without septic shock; E11.69 Type 2 diabetes mellitus with other specified complication; I48.91 Unspecified atrial fibrillation; J44.9 Chronic obstructive pulmonary disease, unspecified; E87.8 Other disorders of electrolyte and fluid balance, not elsewhere classified; E11.65 Type 2 diabetes mellitus with hyperglycemia; E83.41 Hypermagnesemia; E83.39 Other disorders of phosphorus metabolism; G47.33 Obstructive sleep apnea (adult) (pediatric); M79.2 Neuralgia and neuritis, unspecified; E11.51 Type 2 diabetes mellitus with diabetic peripheral angiopathy without gangrene; M48.00 Spinal stenosis, site unspecified; E66.01 Morbid (severe) obesity due to excess calories; D53.9 Nutritional anemia, unspecified; Z89.421 Acquired absence of other right toe(s); Z87.891 Personal history of nicotine dependence; Z82.49 Family history of ischemic heart disease and other diseases of the circulatory system; Z79.899 Other long term (current) drug therapy; Z79.4 Long term (current) use of insulin; Z89.512 Acquired absence of left leg below knee; Z99.2 Dependence on renal dialysis; Z68.30 Body mass index [BMI] 30.0-30.9, adult; Z88.6 Allergy status to analgesic agent; Z88.8 Allergy status to other drugs, medicaments and biological substances